=== PATIENT | female | born 1940 | race Caucasian/White ===

== ENCOUNTER 2020-08-07 11:40 | Emergency (ER) | payer MEDICARE ==
[~2020-08-07] VITALS: Ht 160 cm; Wt 91.6 kg
[~2020-08-07 11:40] MED LIST: CLC500CT; FEXO60CA19; GLUCOSAMINE CHONDROI; GMFB600T; MULT1TAB63; OMG1KC; PRILOSEC; RLX60T; SULF1TAB35 PO; [UNRECOGNIZED DRUG - REMARK]
--- NOTE | 2020-08-07 12:23 | ED Upper Extremity ---
General Chief Complaint: Upper Extremity Stated Complaint: LEFT ARM PAIN Nursing Triage Note: pt reports l arm pain and weakness x 1 week with no known injury Nursing Sepsis Screen: No Definite Risk Source: patient Exam Limitations: no limitations History of Present Illness Date Seen by Provider: Aug 07, 2020 Time Seen by Provider: 12:22 Initial Comments This is a well-appearing 79-year-old female who presents to the ER with complaints of left arm pain that has been present for a week and a half. States that she recently started doing her arm exercises utilizing a brock system and thinks that she overdid it. However she is preparing for a trip and is concerned she may be having a heart attack. Additionally reports a throbbing sensation in her right restoration that has been present since her symptom onset of her left arm. States throbbing sensation does not cause her pain nor does she have any changes in vision. Discussed this with her daughter and daughter states that she believes her mom may be a little anxious about the upcoming trip. She denies fever, chills, cough, chest pain, shortness of breath, nausea, vomiting, abdominal pain. Allergies and Home Medications Allergies Coded Allergies: NKANo Known Allergies (Verified Allergy, Unknown, 08/06/06) Home Medications Sulfamethoxazole/Trimethoprim 1 Each Tablet, 1 EACH PO BID Prescribed by: PIERO LEZAMA MD on 04/04/09 1204 Patient Home Medication List Home Medication List Reviewed: Yes Review of Systems Constitutional: no symptoms reported EENTM: no symptoms reported Respiratory: no symptoms reported Cardiovascular: no symptoms reported Gastrointestinal: no symptoms reported Genitourinary: no symptoms reported Musculoskeletal: see HPI Skin: no symptoms reported Psychiatric/Neurological: See HPI Past Uxsdlnq-Jxdnwx-Jebqcg Hx Patient Social History Alcohol Use: Denies Use Smoking Status: Never a Smoker Recent Infectious Disease Expo: No Recent Hopitalizations: Yes Past Medical History Surgeries: Yes (BREAST BIOPSY, EGD, COLONOSCOPY) Respiratory: No Cardiac: Yes High Cholesterol Neurological: Yes Genitourinary: No Gastrointestinal: Yes Gastroesophageal Reflux Musculoskeletal: No Endocrine: No Psychosocial: No Blood Disorders: No Physical Exam Vital Signs Vital Signs - First Documented 08/07/20 11:49 Temp 37.0 Pulse 96 Resp 18 B/P (MAP) 157/80 (105) Pulse Ox 96 Capillary Refill : Less Than 3 Seconds Height, Weight, BMI Height: '" Weight: lbs. oz. kg; 35.00 BMI Method: General Appearance: WD/WN HEENT: PERRL/EOMI, normal ENT inspection, pharynx normal, other (Bilateral temporal arteries 2+ and regular.) Neck: non-tender, full range of motion, supple, normal inspection Cardiovascular: normal peripheral pulses, regular rate, rhythm, no murmur Respiratory: chest non-tender, lungs clear, normal breath sounds, no respiratory distress Gastrointestinal: normal bowel sounds, non tender, soft Back: normal inspection, no vertebral tenderness Shoulder: normal inspection, non-tender, no evidence of injury; No asymmetry, No bone tenderness, No ecchymosis; pain (Left triceps.); No swelling Elbow/Forearm: normal inspection, non-tender, no evidence of injury Wrist: Yes normal inspection, Yes non-tender, Yes no evidence of injury Hand: normal inspection, non-tender, no evidence of injury, normal ROM Neurologic/Tendon: normal sensation, normal motor functions, normal tendon functions Neurologic/Psychiatric: no motor/sensory deficits, alert, normal mood/affect, oriented x 3 Skin: normal color, warm/dry Progress/Results/Core Measures Results/Orders Lab Results Laboratory Tests Test 08/07/20 13:15 Range/Units Erythrocyte Sedimentation Rate 38 H 0-30 MM/HR C-Reactive Protein High Sensitivity 1.75 H 0.00-0.50 MG/DL My Orders Orders - PAUL BANSAL APRN Hs C Reactive Protein (08/07/20 12:21) Erythrocyte Sedimentation Rate (08/07/20 12:21) Ibuprofen Tablet (Motrin Tablet) (08/07/20 12:45) Medications Given in ED Current Medications Medications Dose Ordered Sig/Kelvin Route Start Time Stop Time Status Last Admin Dose Admin Ibuprofen 400 mg ONCE ONCE PO 08/07/20 12:45 08/07/20 12:46 DC 08/07/20 12:58 400 MG Vital Signs/I&O 08/07/20 08/07/20 11:49 14:25 Temp 37.0 37.0 Pulse 96 90 Resp 18 18 B/P (MAP) 157/80 (105) 142/74 (105) Pulse Ox 96 98 Blood Pressure Mean: 105 Progress Progress Note : Progress Note Patient examined and in no acute distress. Symptoms correlate with her recent exercise with [employer] system. She is tender over her left tricep region. States she came in because when she looked up left arm pain on [employer] it told her she could possibly be having a heart attack. This is why she presented to the ER. However, she denies chest pain, shortness of breath, nausea, vomiting, d iaphoresis. While discussing her case, her daughter who is reported to be a physician was on phone call and was concerned with her throbbing sensation in her right temporal artery and GCA. Discussed that we can order a ESR and CRP to evaluate further for GCA. ESR minimally elevated at 0.38. CRP elevated at 1.75. Discussed that with minimal elevation in inflammatory markers and her lack of pain with pulsing sensation, lack of vision changes, and infrequency of symptoms this is unlikely GCA. Recommended she continue to monitor and discussed following up if her symptoms worsen. Family and patient are agreeable with this plan. Placed kalyan wrap around left tricep and given Motrin 400 mg p.o. States that she feels much improved. Departure Impression Primary Impression: Strain of left triceps muscle Disposition: HOME, SELF-CARE Condition: Improved Departure-Patient Inst. Referrals: JOSE MARTIN CAMEJO MD (PCP/Family) Primary Care Physician Patient Instructions: Muscle Strain ED Add. Discharge Instructions: Plan: 1. Rest, ice 20 minutes at a time 3-4x a day, use kalyan wrap for comfort and you can re-adjust as needed. 2. Tylenol or Ibuprofen as needed for pain per package. 3. Perform gentle elbow exercises so your arm does not stiffen up. 4. Follow up with your primary care provider if your symptoms are persisting. 5. Return for any new, concerning, or worsening symptoms. All discharge instructions reviewed with patient and/or family. Voiced understa nding. PAUL BANSAL GRAPHIC PRODUCTION ARTIST Aug 07, 2020 12:23
[2020-08-07] MEDS ORDERED: IBUPROFEN TABLET 200 MG TAB PO ONE (12:45)
[2020-08-07 14:25] VITALS: BP 142/74
== END 2020-08-07 14:25 | disposition home or self-care (01) ==
LOC: EDUNIT# 11:40 → ER 11:43
DX: S46.312A Strain of muscle, fascia and tendon of triceps, left arm, initial encounter (principal); R79.82 Elevated C-reactive protein (CRP); R70.0 Elevated erythrocyte sedimentation rate; X50.9XXA Other and unspecified overexertion or strenuous movements or postures, initial encounter
CPT/HCPCS: 36415; 85652; 86141; 99283

== ENCOUNTER 2020-09-20 10:22 | Emergency (ER) | payer MEDICARE ==
[~2020-09-20] VITALS: Ht 162 cm; Wt 91.6 kg
[2020-09-20] MEDS ORDERED: FLEET ENEMA ADULT 1 EA BTL PR ONE (11:30)
--- NOTE | 2020-09-20 11:32 | ED GI ---
General Chief Complaint: Abdominal/GI Problems Stated Complaint: CONSTIPATION Source of Information: Patient Exam Limitations: No Limitations History of Present Illness Date Seen by Provider: Sep 20, 2020 Time Seen by Provider: 11:30 Initial Comments To ER with constipation. No bowel movement for 5 days. She tried Dulcolax x2 2 days ago and vomited shortly after taking it. She tried magnesium citrate yesterday and vomited after taking it. No fevers or chills. She has had some right flank pain for about a week as well she believes she twisted wrong. No dysuria no fever no chills. Her last colonoscopy [place] [address] Thorpe here. Timing/Duration: 1-2 Days Severity/Quality: Moderate Location: Generalized Abdomen Radiation: No Radiation Activities at Onset: None Associated Symptoms: Nausea/Vomiting Allergies and Home Medications Allergies Coded Allergies: NKANo Known Allergies (Verified Allergy, Unknown, 08/06/06) Home Medications Sulfamethoxazole/Trimethoprim 1 Each Tablet, 1 EACH PO BID Prescribed by: PIERO LEZAMA MD on 04/04/09 1204 Patient Home Medication List Home Medication List Reviewed: Yes Review of Systems Review of Systems Constitutional: see HPI EENTM: No Symptoms Reported Respiratory: No Symptoms Reported Cardiovascular: No Symptoms Reported Gastrointestinal: See HPI; Denies Abdominal Pain; Constipated, Nausea, Vomiting Genitourinary: No Symptoms Reported Musculoskeletal: no symptoms reported Skin: no symptoms reported Psychiatric/Neurological: No Symptoms Reported Endocrine: No Symptoms Reported Hematologic/Lymphatic: No Symptoms Reported Past Rxrifvg-Nossqo-Wfiknq Hx Patient Social History Tobacco Use?: No Smoking Status: Former Smoker Substance use?: No Alcohol Use?: No Immunizations Up To Date First/Initial COVID19 Vaccinat: 03/31/20 Second COVID19 Vaccination Chidi: 04/28/20 COVID19 Vaccine Milieu Coordinator: MODERNA Past Medical History Surgeries: Yes (BREAST BIOPSY, EGD, COLONOSCOPY) Respiratory: No Cardiac: Yes High Cholesterol Neurological: Yes Genitourinary: No Gastrointestinal: Yes Gastroesophageal Reflux Musculoskeletal: No Endocrine: No Psychosocial: No Blood Disorders: No Physical Exam Vital Signs Vital Signs - First Documented 09/20/20 10:57 Temp 36.4 Pulse 102 Resp 22 B/P (MAP) 139/90 (106) Pulse Ox 95 O2 Delivery Room Air Capillary Refill : Height/Weight/BMI Height: '" Weight: lbs. oz. kg; 35.00 BMI Method: General Appearance: WD/WN, no apparent distress HEENT: PERRL/EOMI, normal ENT inspection Respiratory: no respiratory distress, no accessory muscle use Cardiovascular: regular rate, rhythm, no murmur Gastrointestinal: normal bowel sounds, non tender, soft Extremities: normal range of motion, non-tender Back: CVA tenderness (R); No CVA tenderness (L) Neurologic/Psychiatric: alert, normal mood/affect, oriented x 3 Skin: normal color, warm/dry Progress/Results/Core Measures Results/Orders Lab Results Laboratory Tests Test 09/20/20 11:26 Range/Units White Blood Count 10.9 4.3-11.0 10^3/uL Red Blood Count 4.38 3.80-5.11 10^6/uL Hemoglobin 13.6 11.5-16.0 g/dL Hematocrit 41 35-52 % Mean Corpuscular Volume 94 80-99 fL Mean Corpuscular Hemoglobin 31 25-34 pg Mean Corpuscular Hemoglobin Concent 33 32-36 g/dL Red Cell Distribution Width 13.2 10.0-14.5 % Platelet Count 380 130-400 10^3/uL Mean Platelet Volume 11.9 9.0-12.2 fL Immature Granulocyte % (Auto) 0 % Neutrophils (%) (Auto) 75 42-75 % Lymphocytes (%) (Auto) 14 12-44 % Monocytes (%) (Auto) 8 0-12 % Eosinophils (%) (Auto) 2 0-10 % Basophils (%) (Auto) 1 0-10 % Neutrophils # (Auto) 8.2 H 1.8-7.8 10^3/uL Lymphocytes # (Auto) 1.6 1.0-4.0 10^3/uL Monocytes # (Auto) 0.8 0.0-1.0 10^3/uL Eosinophils # (Auto) 0.2 0.0-0.3 10^3/uL Basophils # (Auto) 0.1 0.0-0.1 10^3/uL Immature Granulocyte # (Auto) 0.0 0.0-0.1 10^3/uL Urine Color YELLOW Urine Clarity CLEAR Urine pH 6.0 5-9 Urine Specific [place] <=1.005 1.016-1.022 Urine Protein NEGATIVE NEGATIVE Urine Glucose (UA) NEGATIVE NEGATIVE Urine Ketones NEGATIVE NEGATIVE Urine Nitrite NEGATIVE NEGATIVE Urine Bilirubin NEGATIVE NEGATIVE Urine Urobilinogen 0.2 < = 1.0 MG/DL Urine Leukocyte Esterase TRACE H NEGATIVE Urine RBC (Auto) NEGATIVE NEGATIVE Urine RBC NONE /HPF Urine WBC 0-2 /HPF Urine Squamous Epithelial Cells 2-5 /HPF Urine Crystals NONE /LPF Urine Bacteria TRACE /HPF Urine Casts NONE /LPF Urine Mucus NEGATIVE /LPF Urine Culture Indicated NO Sodium Level 140 135-145 MMOL/L Potassium Level 4.3 3.6-5.0 MMOL/L Chloride Level 102 98-107 MMOL/L Carbon Dioxide Level 23 21-32 MMOL/L Anion Gap 15 H 5-14 MMOL/L Blood Urea Nitrogen 22 H 7-18 MG/DL Creatinine 0.99 0.60-1.30 MG/DL Estimat Glomerular Filtration Rate 54 BUN/Creatinine Ratio 22 Glucose Level 101 70-105 MG/DL Calcium Level 9.9 8.5-10.1 MG/DL Corrected Calcium 9.7 8.5-10.1 MG/DL Magnesium Level 2.2 1.6-2.4 MG/DL Total Bilirubin 0.5 0.1-1.0 MG/DL Aspartate Amino Transf (AST/SGOT) 22 5-34 U/L Alanine Aminotransferase (ALT/SGPT) 14 0-55 U/L Alkaline Phosphatase 100 40-136 U/L Total Protein 8.1 6.4-8.2 GM/DL Albumin 4.2 3.2-4.5 GM/DL My Orders Orders - SULMA ROY MATRIX DRIER TENDER Ua Culture If Indicated (09/20/20 11:29) Cbc With Automated Diff (09/20/20 11:29) Comprehensive Metabolic Panel (09/20/20 11:29) Magnesium (09/20/20 11:29) Ed Iv/Invasive Line Start (09/20/20 11:29) Na Phos/Na Biphos Enema (Fleet Enema [place] (09/20/20 11:30) Ct Abdomen/Pelvis Wo (09/20/20 11:32) Us Gallbladder [id number] (09/20/20 12:19) Ondansetron Oral Dissolve Tab (Zofran (09/20/20 13:45) Vital Signs/I&O 09/20/20 10:57 Temp 36.4 Pulse 102 Resp 22 B/P (MAP) 139/90 (106) Pulse Ox 95 O2 Delivery Room Air Departure Communication (Admissions) 0596-patient had a small bowel movement hard pebble-like in the commode after administration of a fleets enema. A little bit of blood on this not unexpected. We will discharge her home. She would also like something for the pain in her low back. NAME: CRYSTAL DOWELL [facility] REC#: [id number] PT STATUS: REG ER : 1940 PHYSICIAN: SULMA ROY [employer] DRIER TENDER ADMIT DATE: 09/20/20/ER Draft Date of Exam:09/20/20 CT ABDOMEN/PELVIS WO INDICATION: Right flank pain. TECHNIQUE/COMPARISON: Noncontrast CT imaging of the abdomen and pelvis was performed. There is no previous study available for comparison. FINDINGS: Note is made of multiple low-density regions within the liver. These could represent hepatic cysts. The largest is in the anterolateral right hepatic lobe and measures approximately 3 cm in diameter. The gallbladder is distended with multiple stones seen in the dependent portion. There is no significant biliary ductal dilatation. No pancreatic, adrenal gland, or splenic lesion is identified. There is a small hiatal hernia. The unenhanced images of the kidneys reveal no lesion. There is no hydronephrosis. No urinary tract calculus is identified. The unopacified decompressed urinary bladder has a normal appearance. There is a moderate amount of stool throughout the colon, most pronounced in the right colon. There is no evidence of appendiceal inflammation. No organized fluid collection is identified. There is moderate lower lumbar spondylosis. IMPRESSION: There is cholelithiasis and distention of the gallbladder which could be further evaluated with ultrasonography at which time low-density lesions in the liver could also be assessed for cystic versus solid nature. Note is also made of a mild hiatal hernia and a moderate amount of stool, most pronounced in the right colon, likely indicating constipation. Dictated on workstation # [id number] Dict: 09/20/20 1159 Trans: 09/20/20 1206 [id number] Interpreted by: OVI GAMEZ MD Electronically signed by: Jaci Primary Impression: Constipation Qualified Codes: K59.00 - Constipation, unspecified Disposition: HOME, SELF-CARE Condition: Stable Departure-Patient Inst. Decision time for Depature: 13:41 Referrals: JOSE MARTIN CAMEJO MD (PCP/Family) Primary Care Physician Patient Instructions: Constipation, Adult (DC) Add. Discharge Instructions: Increase your water intake. 2. Use your nausea medication as needed.. Take the nausea medication prior to drinking the laxative. All discharge instructions reviewed with patient and/or family. Voiced unders tanding. Scripts Ondansetron (Ondansetron Odt) 8 Mg Tab.rapdis 8 MG PO Q6H PRN for NAUSEA/VOMITING, #20 TAB Prov: SULMA ROY APRN 09/20/20 Polyethylene Glycol 3350 (Miralax) 17 Gm Powd.pack 17 GM PO QID for 4 Days, #30 EACH Prov: SULMA ROY APRN 09/20/20 SULMA ROY APRN Sep 20, 2020 11:32
[2020-09-20 11:34] LABS: BASOPHILS # (AUTO) 0.1 10^3/uL (0.0-0.1); BASOPHILS % (AUTO) 1 % (0-10); EOSINOPHILS # (AUTO) 0.2 10^3/uL (0.0-0.3); EOSINOPHILS % (AUTO) 2 % (0-10); HEMATOCRIT 41 % (35-52); HEMOGLOBIN 13.6 g/dL (11.5-16.0); LYMPHOCYTES # (AUTO) 1.6 10^3/uL (1.0-4.0); LYMPHOCYTES % (AUTO) 14 % (12-44); MEAN CORPUSCULAR HEMOGLOBIN 31 pg (25-34); MEAN CORPUSCULAR HGB CONC 33 g/dL (32-36); MEAN CORPUSCULAR VOLUME 94 fL (80-99); MEAN PLATELET VOLUME 11.9 fL (9.0-12.2); MONOCYTES # (AUTO) 0.8 10^3/uL (0.0-1.0); MONOCYTES % (AUTO) 8 % (0-12); NEUTROPHILS # (AUTO) 8.2 10^3/uL (1.8-7.8); NEUTROPHILS % (AUTO) 75 % (42-75); PLATELET COUNT 380 10^3/uL (130-400); WHITE BLOOD COUNT 10.9 10^3/uL (4.3-11.0)
[2020-09-20 11:35] LABS: BILIRUBIN,URINE NEGATIVE (NEGATIVE); CLARITY,URINE CLEAR; COLOR,URINE YELLOW; GLUCOSE, URINE (UA) NEGATIVE (NEGATIVE); KETONES,URINE NEGATIVE (NEGATIVE); LEUKOCYTE ESTERASE ,URINE TRACE (NEGATIVE); NITRITE,URINE NEGATIVE (NEGATIVE); PROTEIN,URINE NEGATIVE (NEGATIVE)
[2020-09-20 11:46] LABS: ALBUMIN 4.2 GM/DL (3.2-4.5); POTASSIUM 4.3 MMOL/L (3.6-5.0)
[2020-09-20 11:47] LABS: CALCIUM 9.9 MG/DL (8.5-10.1)
[2020-09-20 11:48] LABS: BACTERIA,URINE TRACE /HPF; TOTAL PROTEIN 8.1 GM/DL (6.4-8.2); WBC,URINE 0-2 /HPF
[2020-09-20 11:50] LABS: BILIRUBIN,TOTAL 0.5 MG/DL (0.1-1.0)
[2020-09-20 11:52] LABS: CREATININE SERUM 0.99 MG/DL (0.60-1.30)
[2020-09-20 11:55] LABS: MAGNESIUM 2.2 MG/DL (1.6-2.4)
--- NOTE | 2020-09-20 12:06 | Diagnostic Imaging Report ---
INDICATION: Right flank pain. TECHNIQUE/COMPARISON: Noncontrast CT imaging of the abdomen and pelvis was performed. There is no previous study available for comparison. FINDINGS: Note is made of multiple low-density regions within the liver. These could represent hepatic cysts. The largest is in the anterolateral right hepatic lobe and measures approximately 3 cm in diameter. The gallbladder is distended with multiple stones seen in the dependent portion. There is no significant biliary ductal dilatation. No pancreatic, adrenal gland, or splenic lesion is identified. There is a small hiatal hernia. The unenhanced images of the kidneys reveal no lesion. There is no hydronephrosis. No urinary tract calculus is identified. The unopacified decompressed urinary bladder has a normal appearance. There is a moderate amount of stool throughout the colon, most pronounced in the right colon. There is no evidence of appendiceal inflammation. No organized fluid collection is identified. There is moderate lower lumbar spondylosis. IMPRESSION: There is cholelithiasis and distention of the gallbladder which could be further evaluated with ultrasonography at which time low-density lesions in the liver could also be assessed for cystic versus solid nature. Note is also made of a mild hiatal hernia and a moderate amount of stool, most pronounced in the right colon, likely indicating constipation. Dictated by: Dictated on workstation # [id number]
[2020-09-20] MEDS ORDERED: ONDANSETRON 4 MG (ZOFRAN) ORAL DISSOLVE TAB PO ONE (13:45)
[2020-09-20] MEDS ORDERED: ONDA8TAB13 PO (14:09)
[2020-09-20] MEDS ORDERED: POLY17PO6 PO (14:09)
[2020-09-20] MEDS ORDERED: KETOROLAC 30 MG/ML VIAL IM ONE (14:15)
[2020-09-20 15:03] VITALS: BP 139/90
--- NOTE | 2020-09-20 17:00 | Diagnostic Imaging Report ---
PROCEDURE: US Gallbladder. TECHNIQUE: Multiple real-time grayscale images were obtained over the right upper quadrant in various projections. INDICATION: Right upper quadrant pain, cholelithiasis, gallbladder distention. COMPARISON: Exam is correlated with CT abdomen and pelvis performed earlier this same date. FINDINGS: The gallbladder is distended and stone containing, its wall at 2 mm was not pathologically thickened. No pericholecystic edema. There is no documentation as to the presence or absence of Whitney's sign. There is no abnormal distention of the intrahepatic bile ducts. The common bile duct could not be visualized but was nondilated on earlier CT. Pancreas and aorta are largely obscured but grossly unremarkable at earlier CT. The unobstructed right kidney appeared unremarkable and nonacute. There is cyst in the liver showing no complexity. IMPRESSION: 1. Stone-containing distended gallbladder without wall thickening or appreciable pericholecystic edema. No identifiable intrahepatic biliary ductal dilatation and a nondilated extrahepatic duct was seen at earlier CT. 2. Hepatic cyst with an unobstructed right kidney. No ascites or fluid collection. Dictated by: Dictated on workstation # [id number]
== END 2020-09-20 15:03 | disposition home or self-care (01) ==
LOC: EDUNIT# 10:22 → ER 10:24
DX: K59.00 Constipation, unspecified (principal); Z87.891 Personal history of nicotine dependence
CPT/HCPCS: 36415; 74176; 76705; 80053; 81000; 83735; 85025; 96372

== ENCOUNTER 2020-09-25 17:34 | Emergency (ER) | payer MEDICARE ==
[~2020-09-25] VITALS: Ht 162 cm; Wt 90.0 kg
[~2020-09-25 17:34] MED LIST changes: +ONDA8TAB13 PO; +POLY17PO6 PO
[2020-09-25] MEDS ORDERED: ORPHENADRINE 60 MG/2 ML (NORFLEX) AMP (ED ONLY) IM ONE (18:00)
[2020-09-25] MEDS ORDERED: KETOROLAC 30 MG/ML VIAL IM ONE (18:00)
--- NOTE | 2020-09-25 18:05 | ED Back Pain ---
General Chief Complaint: Back Problems Stated Complaint: BACK PAIN Nursing Triage Note: PT TO ED PER EMS FOR C/O LOWER BACK PAIN ONSET X5 DAYS. PT REPORTS WAS SEEN IN THIS ED X2 DAYS AGO FOR CONSTIPATION ET BACK PAIN. PT REPORTS CONSTIPATION IS IMPROVED BUT BACK PAIN IS NOT. NO OTHER C/O VOICED. History of Present Illness Date Seen by Provider: Sep 25, 2020 Initial Comments This is an 80-year-old female who presents to the ER via [facility] with complaints of right-sided low back pain. This pain has been present for the past week and she has also had associated constipation during this time. States that her constipation has since resolved however the back pain is still present. States that ice helps briefly but then her pain returns. Pain is present when ambulating, better with rest. Allergies and Home Medications Allergies Coded Allergies: NKANo Known Allergies (Verified Allergy, Unknown, 08/06/06) Home Medications Ondansetron 8 Mg Tab.rapdis, 8 MG PO Q6H PRN for NAUSEA/VOMITING Prescribed by: SULMA ROY on 09/20/20 1409 Polyethylene Glycol 3350 17 Gm Powd.pack, 17 GM PO QID Prescribed by: SULMA ROY on 09/20/20 1409 Sulfamethoxazole/Trimethoprim 1 Each Tablet, 1 EACH PO BID Prescribed by: PIERO LEZAMA MD on 04/04/09 1204 Past Tnaehzi-Aeocnv-Ahuejy Hx Patient Social History Tobacco Use?: No Smoking Status: Former Smoker Use of E-Cig and/or Vaping dev: No Substance use?: No Alcohol Use?: No Pt feels they are or have been: No Past Medical History Surgery/Hospitalization HX: T&A Surgeries: Yes (BREAST BIOPSY, EGD, COLONOSCOPY) Respiratory: No Cardiac: Yes High Cholesterol Neurological: Yes Genitourinary: No Gastrointestinal: Yes Gastroesophageal Reflux Musculoskeletal: No Endocrine: No Psychosocial: No Blood Disorders: No Physical Exam Vital Signs Vital Signs - First Documented 09/25/20 17:40 Temp 36.0 Pulse 91 Resp 20 B/P (MAP) 180/96 (124) Pulse Ox 100 O2 Delivery Room Air Capillary Refill : Less Than 3 Seconds Height, Weight, BMI Height: '" Weight: lbs. oz. kg; 34.00 BMI Method: Progress/Results/Core Measures Results/Orders My Orders Orders - PAUL BANSAL APRN Ketorolac Injection (Toradol Injection) (09/25/20 18:00) Orphenadrine Inj (Ed Only) (Norflex Inje (09/25/20 18:00) Rx-Cyclobenzaprine Tablet (Rx-Flexeril T (09/25/20 19:10) Medications Given in ED Current Medications Medications Dose Ordered Sig/Kelvin Route Start Time Stop Time Status Last Admin Dose Admin Ketorolac Tromethamine 30 mg ONCE ONCE IM 09/25/20 18:00 09/25/20 18:01 DC 09/25/20 18:46 30 MG Orphenadrine Citrate 60 mg ONCE ONCE IM 09/25/20 18:00 09/25/20 18:01 DC 09/25/20 18:45 60 MG Vital Signs/I&O 09/25/20 17:40 Temp 36.0 Pulse 91 Resp 20 B/P (MAP) 180/96 (124) Pulse Ox 100 O2 Delivery Room Air Blood Pressure Mean: 124 Departure Impression Primary Impression: SI (sacroiliac) joint inflammation Disposition: HOME, SELF-CARE Condition: Improved Departure-Patient Inst. Decision time for Depature: 19:11 Referrals: JOSE MARTIN CAMEJO MD (PCP/Family) Primary Care Physician Patient Instructions: Sacroiliac Joint Pain Add. Discharge Instructions: Plan: 1. May use ice/heat 20 minutes at a time as needed for pain. 2. May take Tylenol or Ibuprofen as needed for pain per package. 3. Take Flexeril 10mg by mouth every 8 hours as needed for pain. 4. Follow up with your doctor for persistent pain. 5. Return for any new, concerning, or worsening symptoms. All discharge instructions reviewed with patient and/or family. Voiced understanding. Scripts Cyclobenzaprine HCl (Cyclobenzaprine HCl) 10 Mg Tablet 10 MG PO Q8H PRN for SPASMS, #15 TAB 0 Refills Prov: PALU BANSAL GLOBAL CMO 09/25/20 PAUL BANSAL GLOBAL CMO Sep 25, 2020 18:05
[2020-09-25] MEDS ORDERED: RX-CYCLOBENZAPRINE 10 MG (FLEXERIL) TAB PPK#3 PO STA (19:10)
[2020-09-25] MEDS ORDERED: CYCL10TA9 PO (19:12)
[2020-09-25 19:20] VITALS: BP 180/96
== END 2020-09-25 19:20 | disposition home or self-care (01) ==
LOC: EDUNIT# 17:34 → ER 17:36
DX: M46.1 Sacroiliitis, not elsewhere classified (principal); Z87.891 Personal history of nicotine dependence

== ENCOUNTER 2020-11-03 11:47 | Outpatient (RCR) | payer MEDICARE | END 2020-11-18 09:19 | disposition home or self-care (01) | PROVIDERS: ATTEND Family Medicine | DX: M25.552 Pain in left hip (principal); M25.551 Pain in right hip; M54.5 Low back pain ==

== ENCOUNTER → 2020-11-03 | Outpatient (CLI) | payer MEDICARE ==
[~2020-11-03] MED LIST changes: +CYCL10TA9 PO
--- NOTE | 2020-11-03 15:28 | Diagnostic Imaging Report ---
INDICATION: Low back pain. EXAMINATION: Lumbar spine. FINDINGS: AP and lateral views of the lumbar spine show normal vertebral body alignment. There is a compression fracture of L1 with anterior wedging. There is vacuum disc phenomena with disc space narrowing at L4-L5 and L5-S1. IMPRESSION: L1 compression fracture. This has progressed since 09/20/2020. 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 Dictated by: Dictated on workstation # [id number]
--- NOTE | 2020-11-03 15:31 | Diagnostic Imaging Report ---
INDICATION: Low back pain. EXAMINATION: Sacroiliac joints. FINDINGS: AP and oblique views of the SI joints do not show any fracture of the sacral ala. SI joints appear to be intact. There are no sclerotic changes of the opposing articular surfaces. There are advanced degenerative disc changes at L5-S1. IMPRESSION: Unremarkable sacroiliac joints. Dictated by: Dictated on workstation # [id number]
== END ==
LOC: RAD 14:43
PROVIDERS: ATTEND Family Medicine
DX: M48.56XA Collapsed vertebra, not elsewhere classified, lumbar region, initial encounter for fracture (principal); M51.36 Other intervertebral disc degeneration, lumbar region; M51.37 Other intervertebral disc degeneration, lumbosacral region
CPT/HCPCS: 72100; 72202

== ENCOUNTER → 2020-11-04 | Outpatient (CLI) | payer MEDICARE ==
--- NOTE | 2020-11-04 14:20 | Diagnostic Imaging Report ---
INDICATION: Pelvic and right hip pain AP view of the pelvis is obtained with coned AP and frog-leg views of right hip. FINDINGS: There is lower lumbar spondylosis. No acute fracture or dislocation is identified. No abnormal lytic or sclerotic focus is seen, and there is no radiopaque foreign body. IMPRESSION: No acute abnormality. Dictated by: Dictated on workstation # [id number]
== END ==
LOC: RAD 13:41
PROVIDERS: ATTEND Family Medicine
DX: M48.56XA Collapsed vertebra, not elsewhere classified, lumbar region, initial encounter for fracture (principal)

== ENCOUNTER → 2020-12-21 | Outpatient (CLI) | payer MEDICARE ==
--- NOTE | 2020-12-21 15:26 | Diagnostic Imaging Report ---
INDICATION: Postmenopausal state COMPARISON: 03/03/2011 FINDINGS: AP Spine L1-L4: [BMD (g/cm2): 1.016] [T-Score: -1.5] [Z-Score: -0.3] [BMD Previous: 1.132] [BMD % Change: -10.2] LT Hip Neck: [BMD (g/cm2): 0.753] [T-Score: -2.1] [Z-Score: -0.3] LT Hip Total: [BMD (g/cm2):0.850] [T-Score:-1.3] [Z-Score: 0.4] [BMD Previous: 0.894] [BMD % Change: -4.9] RT Hip Neck: [BMD (g/cm2):0.761] [T-Score:-2.0] [Z-Score:-0.2] RT Hip Total: [BMD (g/cm2):0.809] [T-score:-1.6] [Z-Score:0.0] [BMD Previous:0.899] [BMD % Change:-10.0] *Indicates significant change from prior examination based on 95% confidence level. World Health Organization criteria for BMD interpretation classify patients as Normal (T-score at or above -1.0), Osteopenic (T-score between -1.0 and -2.5) or Osteoporotic (T-score at or below -2.5). LIMITATIONS AND MODIFICATION: None. FRACTURE RISK (FRAX SCORE): The ten year probability of (%): Major Osteoporotic Fracture: [22.3] Hip Fracture: [6.0] IMPRESSION: 1. Osteopenia (Low bone mass). 2. No significant change in bone mineral density since prior examination. 3. See below National Osteoporosis Foundation guidelines on when to potentially initiate pharmacologic therapy. Based on the National Osteoporosis Foundation Guidelines, pharmacologic treatment should be initiated in any of the following, unless clinical conditions suggest otherwise: * Any patient with prior fragility fracture of the hip or vertebrae. A spine fracture indicates 5X risk for subsequent spine fracture and 2X risk for subsequent hip fracture. * Osteoporosis (T-score <-2.5). * Postmenopausal women and men age 50 and older with low bone mass/osteopenia (T-score between -1.0 and -2.5) by DXA and 10-year major osteoporotic fracture greater than 20% or a 10-year probability of hip fracture greater than 3%. These fracture risks are supplied above in the FRAX score, if applicable. * Clinician judgement and/or patient preferences may indicate treatment for people with 10-year fracture probabilities above or below these levels. Dictated by: Dictated on workstation # [id number]
== END ==
LOC: RAD 14:30
PROVIDERS: ATTEND Physician Assistant
DX: M85.80 Other specified disorders of bone density and structure, unspecified site (principal); Z78.0 Asymptomatic menopausal state
CPT/HCPCS: 77080

== ENCOUNTER 2021-02-13 20:31 | Inpatient (IN) | payer MEDICARE ==
[~2021-02-13] VITALS: Ht 157.1 cm; Wt 82.0 kg
[~2021-02-13 20:31] MED LIST changes: +CYCL10TA25 PO; -CYCL10TA9 PO
[2021-02-13] MEDS ORDERED: LACTATED RINGERS 1,000 ML IV ONE (20:45)
[2021-02-13 20:50] LABS: BASOPHILS # (AUTO) 0.1 10^3/uL (0.0-0.1); BASOPHILS % (AUTO) 1 % (0-10); EOSINOPHILS # (AUTO) 0.2 10^3/uL (0.0-0.3); EOSINOPHILS % (AUTO) 2 % (0-10); HEMATOCRIT 44 % (35-52); LYMPHOCYTES # (AUTO) 1.5 10^3/uL (1.0-4.0); LYMPHOCYTES % (AUTO) 14 % (12-44); MEAN CORPUSCULAR HEMOGLOBIN 30 pg (25-34); MEAN CORPUSCULAR HGB CONC 34 g/dL (32-36); MEAN CORPUSCULAR VOLUME 90 fL (80-99); MONOCYTES # (AUTO) 0.7 10^3/uL (0.0-1.0); MONOCYTES % (AUTO) 7 % (0-12); NEUTROPHILS # (AUTO) 8.1 10^3/uL (1.8-7.8); NEUTROPHILS % (AUTO) 77 % (42-75); PLATELET COUNT 297 10^3/uL (130-400); WHITE BLOOD COUNT 10.5 10^3/uL (4.3-11.0)
[2021-02-13 21:02] LABS: PROTHROMBIN TIME PATIENT 13.1 SEC (12.2-14.7)
[2021-02-13 21:03] LABS: ALBUMIN 4.1 GM/DL (3.2-4.5); CHLORIDE 90 MMOL/L (98-107); SODIUM 135 MMOL/L (135-145)
[2021-02-13 21:04] LABS: CALCIUM 9.7 MG/DL (8.5-10.1)
[2021-02-13 21:06] LABS: AMMONIA 37 UMOL/L (11-32); GLUCOSE 148 MG/DL (70-105); TOTAL PROTEIN 7.8 GM/DL (6.4-8.2)
[2021-02-13 21:07] LABS: BILIRUBIN,TOTAL 0.5 MG/DL (0.1-1.0); CARBON DIOXIDE 30 MMOL/L (21-32)
[2021-02-13 21:08] LABS: ERYTHROCYTE SEDIMENTATION RATE 31 MM/HR (0-30)
[2021-02-13 21:09] LABS: ALKALINE PHOSPHATASE 108 U/L (40-136); CREATININE SERUM 0.74 MG/DL (0.60-1.30); GFR ESTIMATED 76
--- NOTE | 2021-02-13 21:09 | Diagnostic Imaging Report ---
INDICATION: Altered mental status and weakness. FINDINGS: The heart size is normal. There is some bibasilar subsegmental atelectasis and/or pneumonitis. There is no pleural effusion or pneumothorax. Mediastinum is unremarkable. IMPRESSION: Bibasilar subsegmental atelectasis and/or pneumonitis. Dictated by: Dictated on workstation # [id number]
--- NOTE | 2021-02-13 21:09 | Diagnostic Imaging Report ---
PROCEDURE: CT head wo r/o stroke. TECHNIQUE: Multiple contiguous axial images were obtained through the brain without the use of intravenous contrast. Auto Exposure Controls were utilized during the CT exam to meet ALARA standards for radiation dose reduction. INDICATION: Neurologic deficit. Comparison made with prior examination of 02/01/2010. FINDINGS: There is prominence of the ventricles and sulci. There is no hydrocephalus or cerebral edema. There is no midline shift or mass-effect. There is no intracranial mass, hemorrhage, or extra-axial fluid collection. There is some diffuse decreased attenuation of the periventricular white matter which is nonspecific. The visualized paranasal sinuses and mastoid air cells are clear. There are no regional areas of decreased attenuation appreciated to suggest an acute CVA. IMPRESSION: 1. No acute intracranial process. 2. Age-appropriate atrophy. 3. Decreased attenuation of the periventricular white matter which is nonspecific, however, likely reflects senescent change and/or chronic small vessel ischemic disease. Dictated by: Dictated on workstation # [id number]
[2021-02-13 21:11] LABS: BUN/CREATININE RATIO 31
[2021-02-13 21:12] LABS: ALANINE AMINOTRANSFERASE 22 U/L (0-55)
[2021-02-13 21:13] LABS: MAGNESIUM 2.1 MG/DL (1.6-2.4)
[2021-02-13 21:14] LABS: CREATINE KINASE 33 U/L (29-168)
[2021-02-13 21:16] LABS: CLARITY,URINE CLEAR; COLOR,URINE YELLOW; GLUCOSE, URINE (UA) NEGATIVE (NEGATIVE); KETONES,URINE TRACE (NEGATIVE); LEUKOCYTE ESTERASE ,URINE NEGATIVE (NEGATIVE); NITRITE,URINE NEGATIVE (NEGATIVE); PROTEIN,URINE NEGATIVE (NEGATIVE)
--- NOTE | 2021-02-13 21:19 | ED General ---
General Chief Complaint: Altered Mental Status Stated Complaint: CONFUSION,SLURRED SPEECH Nursing Triage Note: Patient presented to the ER tonight via EMS secondary to confusion and slurred speech. Patients son states symptoms began approximately 2-3 days ago. Source of Information: Patient, EMS History of Present Illness Date Seen by Provider: Feb 13, 2021 Time Seen by Provider: 20:33 Initial Comments PT ARRIVES VIA EMS FROM HOME--SON IS [employer]IDE [employer] AND CALLED EMS PT HAS HAD GENERALIZED WEAKNESS, AND SOME CONFUSION AND OCCASIONAL SLURRED SPEECH OFF AND ON FOR THE LAST 2-3 DAYS PT HAD L1 COMPRESSION FRACTURE THIS SUMMER, AND HAS BEEN FOLLOWED AT [address] IN [facility], AND WAS RELEASED BY THE ORTHOPEDIC SURGEON LAST WEEK SON HAS REPORTED THAT PT HAS "GONE [place]" SINCE SUMMER, AFTER THE COMPRESSION FRACTURE OCCURRED--HAS LOST WEIGHT, HAVING GENERALIZED WEAKNESS. HAS HAD MEETINGS WITH "[employer]" [facility], AND ARE TRYING TO GET HOME PHYSICAL THERAPY SET UP. PT DENIES HEADACHE DENIES VISION CHANGES DENIES CHEST PAIN DENIES COUGH OR SHORTNESS OF BREATH DENIES NAUSEA, VOMITING, DIARRHEA OR ABDOMINAL PAIN --STATES SHE HAD CHICKEN NOODLE SOUP THIS EVENING DENIES ANY URINARY SYMPTOMS DENIES PARESTHESIAS OR MOTOR DEFICITS PT'S ONLY COMPLAINT IS CHRONIC NECK PAIN --IS BEING FOLLOWED BY [address] FOR THIS PROBLEM PT HAS HAD COVID-19 VACCINE NO FEVER OR RECENT ILLNESS. EMS REPORT THAT SPEECH WAS ESSENTIALLY CLEAR FOR THEM, WITH THE EXCEPTION OF A COUPLE OF WORDS WERE SLIGHTLY SLURRED PT'S DAUGHTER IS A PHYSICIAN 2144--SON NOW REPORTS THAT PT'S CYMBALTA DOSE WAS DOUBLED ON 02/08/21.( TAKES FOR DEPRESSION) HE STATES SHE NORMALLY WRITES EVERYTHING DOWN IN A JOURNAL, OF WHEN SHE TAKES WHICH PILLS, BUT PT HAS NOT WRITTEN ANYTHING DOWN ALL WEEK. HE STATES SHE HAS BEEN "GOING [place]" FOR THE LAST WEEK, WITH INCREASING FORGETFULNESS ( MORE THAN NORMAL) AND GENERALIZED WEAKNESS--THINKS IT WAS STARTING BEFORE MEDICATION CHANGE, BUT HAS GOTTEN WORSE SINCE THE . PCP: DR. CAMEJO Allergies and Home Medications Allergies Coded Allergies: Power Known Allergies (Verified Allergy, Unknown, 08/06/06) Patient Home Medication List Home Medication List Reviewed: Yes Calcium Carbonate (Tums) 500 Mg Tab.chew, (Reported) Entered as Reported by: LENI ARIAS on 08/06/062051 Cyclobenzaprine HCl (Cyclobenzaprine HCl) 10 Mg Tablet, 10 MG PO Q8H PRN for SPASMS Prescribed by: PAUL BANSAL on 09/25/201911 Fexofenadine Hcl (Olena) 60 Mg Capsule, (Reported) Entered as Reported by: LENI ARIAS on 08/06/062043 Gemfibrozil (Lopid) 600 Mg Tablet, (Reported) Entered as Reported by: LENI ARIAS on 08/06/062043 Multivitamins (Vitamins (Multi-Vit)) 1 Ea Tablet, (Reported) Entered as Reported by: LENI ARIAS on 08/06/062048 [place] 3 Polyunsat Fatty Acids (Fish Oil) 1,000 Mg Cap, (Reported) Entered as Reported by: LENI ARIAS on 08/06/062049 Ondansetron (Ondansetron Odt) 8 Mg Tab.rapdis, 8 MG PO Q6H PRN for NAUSEA/VOM ITING Prescribed by: SULMA ROY on 09/20/20 140 Polyethylene Glycol 3350 (Miralax) 17 Gm Powd.pack, 17 GM PO QID Prescribed by: SULMA ROY on 09/20/20 140 Raloxifene Hcl (Evista) 60 Mg Tablet, (Reported) Entered as Reported by: LENI ARIAS on 08/06/062044 Sulfamethoxazole/Trimethoprim (Bactrim DS) 1 Each Tablet, 1 EACH PO BID Prescribed by: PIERO LEZAMA MD on 04/04/09 1204 [Allergy Sinus] TAB, (Reported) Entered as Reported by: LENI ARIAS on 08/06/062049 [Glucosamine Chondroi] TAB, (Reported) Entered as Reported by: LENI ARIAS on 08/06/062048 [Prilosec ] 20 MG TAB, (Reported) Entered as Reported by: LENI ARIAS on 08/06/062045 Review of Systems Review of Systems Constitutional: see HPI; No fever; malaise, weakness EENTM: no symptoms reported Respiratory: no symptoms reported; No cough, No short of breath Cardiovascular: no symptoms reported; No chest pain, No edema, No syncope Gastrointestinal: no symptoms reported; No abdominal pain, No diarrhea, No loss of appetite, No nausea, No vomiting Genitourinary: no symptoms reported Musculoskeletal: see HPI, neck pain Skin: no symptoms reported Psychiatric/Neurological: See HPI; Denies Headache, Denies Numbness, Denies Paresthesia, Denies Seizure, Denies Tingling Hematologic/Lymphatic: No Symptoms Reported Immunological/Allergic: no symptoms reported Past [id number]-Uuelij Hx Patient Social History Tobacco Use?: No Use of E-Cig and/or Vaping dev: No Substance use?: No Alcohol Use?: No Immunizations Up To Date First/Initial COVID19 Vaccinat: 03/31/20 Second COVID19 Vaccination Chidi: 04/28/20 Third COVID19 Vaccination Date: 03/31/20 Past Medical History Surgery/Hospitalization HX: T&A COLONOSCOPY 06/[address] ORTEZ--POLYPECTOMY DONE Surgeries: Yes (BREAST BIOPSY, EGD, COLONOSCOPY) Adenoidectomy, Breast, Tonsillectomy Respiratory: No Cardiac: Yes High Cholesterol Neurological: Yes Genitourinary: No Gastrointestinal: Yes Gastroesophageal Reflux, Polyps Musculoskeletal: Yes (L1 COMPRESSION FRACTURE 2020) Arthritis, Fractures Endocrine: No HEENT: No (S/P TONSILLECTOMY) Cancer: No Psychosocial: Yes Depression Integumentary: No Blood Disorders: No Physical Exam Vital Signs Vital Signs - First Documented 02/13/21 02/13/21 20:34 20:42 Temp 36.6 Pulse 90 Resp 18 B/P (MAP) 170/91 (117) Pulse Ox 94 O2 Delivery Room Air O2 Flow Rate 2.00 FiO2 100 Capillary Refill : Less Than 3 Seconds Height, Weight, BMI Height: '" Weight: lbs. oz. kg; 30.00 BMI Method: General Appearance: No Apparent Distress, WD/WN HEENT: PERRL/EOMI, TMs Normal, Normal ENT Inspection, Pharynx Normal Neck: Supple, Tender Lateral, Tender Midline Respiratory: Normal Breath Sounds, No Accessory Muscle Use, No Respiratory Distress Cardiovascular: Regular Rate, Rhythm, No Edema, No JVD, No Murmur, Normal Peripheral Pulses Gastrointestinal: Normal Bowel Sounds, No Organomegaly, No Pulsatile Mass, Non Tender, Soft Back: Normal Inspection, No CVA Tenderness, No Vertebral Tenderness Extremity: Normal Capillary Refill, Normal Inspection, Normal Range of Motion, Non Tender, No Calf Tenderness, No Pedal Edema Neurologic/Psychiatric: Alert, No Motor/Sensory Deficits, Normal Mood/Affect, group sales coordinator II-XII Norm as Tested; No Aphasia, No Facial Droop, No Motor Weakness, No Sensory Deficit; Other (ORIENTED TO PERSON, PLACE, SITUTATION, KNOWS MONTH AND REJI IS ALMOST HERE, BUT DOES NOT KNOW DATE OR YEAR--STATED IT WAS 1921. NO CONFUSION OTHERWISE AND ABLE TO ANSWER ALL OTHER QUESTIONS APPROPRIATELY, EXCEPT A FEW TIMES DID HAVE DIFFICULTY FINDING A WORD. NO SLURRED SPEECH. ALL MOTOR SKILLS ARE INTACT AND PT ABLE TO FOLLOW COMMANDS. ) Skin: Normal Color, Warm/Dry; No Rash Focused Exam Sepsis Stage: Ruled Out Possible Source: Pulmonary Time of Focused Exam: 22:30 Respiratory: Normal Breath Sounds, No Accessory Muscle Use, No Respiratory Distress Cardiovascular: Regular Rate, Rhythm, No Edema, No Murmur Capillary Refill: Less Than 3 Seconds Skin: normal color, warm/dry Within 3hrs of presentation: Admin fluids, Admin ABX, Blood cultures prior to ABX's, Focus exam, Lactate level Progress/Results/Core Measures Suspected Sepsis SIRS Temperature: Pulse: 90 Respiratory Rate: 18 Laboratory Tests 02/13/21 20:40: White Blood Count 10.5 Blood Pressure 170 /91 Mean: 117 Laboratory Tests 02/13/21 20:40: Creatinine 0.74, INR Comment 1.0, Platelet Count 297, Total Bilirubin 0.5 Results/Orders Lab Results Laboratory Tests Test 02/13/21 20:40 02/13/21 20:47 02/13/21 21:10 Range/Units White Blood Count 10.5 4.3-11.0 10^3/uL Red Blood Count 4.94 3.80-5.11 10^6/uL Hemoglobin 15.0 11.5-16.0 g/dL Hematocrit 44 35-52 % Mean Corpuscular Volume 90 80-99 fL Mean Corpuscular Hemoglobin 30 25-34 pg Mean Corpuscular Hemoglobin Concent 34 32-36 g/dL Red Cell Distribution Width 14.5 10.0-14.5 % Platelet Count 297 130-400 10^3/uL Mean Platelet Volume 12.0 9.0-12.2 fL Immature Granulocyte % (Auto) 0 % Neutrophils (%) (Auto) 77 H 42-75 % Lymphocytes (%) (Auto) 14 12-44 % Monocytes (%) (Auto) 7 0-12 % Eosinophils (%) (Auto) 2 0-10 % Basophils (%) (Auto) 1 0-10 % Neutrophils # (Auto) 8.1 H 1.8-7.8 10^3/uL Lymphocytes # (Auto) 1.5 1.0-4.0 10^3/uL Monocytes # (Auto) 0.7 0.0-1.0 10^3/uL Eosinophils # (Auto) 0.2 0.0-0.3 10^3/uL Basophils # (Auto) 0.1 0.0-0.1 10^3/uL Immature Granulocyte # (Auto) 0.0 0.0-0.1 10^3/uL Erythrocyte Sedimentation Rate 31 H 0-30 MM/HR Prothrombin Time 13.1 12.2-14.7 SEC INR Comment 1.0 0.8-1.4 Activated Partial Thromboplast Time 37 H 24-35 SEC Sodium Level 135 135-145 MMOL/L Potassium Level 2.2 *L 3.6-5.0 MMOL/L Chloride Level 90 L 98-107 MMOL/L Carbon Dioxide Level 30 21-32 MMOL/L Anion Gap 15 H 5-14 MMOL/L Blood Urea Nitrogen 23 H 7-18 MG/DL Creatinine 0.74 0.60-1.30 MG/DL Estimat Glomerular Filtration Rate 76 BUN/Creatinine Ratio 31 Glucose Level 148 H 70-105 MG/DL Calcium Level 9.7 8.5-10.1 MG/DL Corrected Calcium 9.6 8.5-10.1 MG/DL Magnesium Level 2.1 1.6-2.4 MG/DL Total Bilirubin 0.5 0.1-1.0 MG/DL Aspartate Amino Transf (AST/SGOT) 22 5-34 U/L Alanine Aminotransferase (ALT/SGPT) 22 0-55 U/L Alkaline Phosphatase 108 40-136 U/L Ammonia 37 H 11-32 UMOL/L Total Creatine Kinase 33 29-168 U/L Creatine Kinase MB 0.5 <6.6 NG/ML Myoglobin 38.5 10.0-92.0 NG/ML Troponin I < 0.028 <0.028 NG/ML C-Reactive Protein High Sensitivity 2.22 H 0.00-0.50 MG/DL B-Type Natriuretic Peptide 17.6 <100.0 PG/ML Total Protein 7.8 6.4-8.2 GM/DL Albumin 4.1 3.2-4.5 GM/DL Influenza Type A (RT-PCR) Not Detected Not Detecte Influenza Type B (RT-PCR) Not Detected Not Detecte SARS-CoV-2 RNA (RT-PCR) Not Detected Not Detecte Urine Color YELLOW Urine Clarity CLEAR Urine pH 6.0 5-9 Urine Specific [place] 1.015 L 1.016-1.022 Urine Protein NEGATIVE NEGATIVE Urine Glucose (UA) NEGATIVE NEGATIVE Urine Ketones TRACE H NEGATIVE Urine Nitrite NEGATIVE NEGATIVE Urine Bilirubin 1+ H NEGATIVE Urine Urobilinogen 2.0 < = 1.0 MG/DL Urine Leukocyte Esterase NEGATIVE NEGATIVE Urine RBC (Auto) NEGATIVE NEGATIVE Urine RBC NONE /HPF Urine WBC 0-2 /HPF Urine Squamous Epithelial Cells 0-2 /HPF Urine Renal Epithelial Cells NONE /HPF Urine Crystals NONE /LPF Urine Bacteria NEGATIVE /HPF Urine Casts NONE /LPF Urine Mucus SMALL H /LPF Urine Culture Indicated NO My Orders Orders - ELVIRA DUFFY DO Ed Iv/Invasive Line Start (02/13/21 20:36) Ekg Tracing (02/13/21 20:36) Monitor-Rhythm Ecg Trace Only (02/13/21 20:36) Straight Cath For Spec.-Adult (02/13/21 20:36) Ct Head Wo-R/O Stroke (02/13/21 20:36) Chest 1 View, Ap/Pa Only (02/13/21 20:36) Ammonia (02/13/21 20:36) Bnp [place] (02/13/21 20:36) Cbc With Automated Diff (02/13/21 20:36) Comprehensive Metabolic Panel (02/13/21 20:36) Creatine Kinase (02/13/21 20:36) Creatine Kinase Mb (02/13/21 20:36) Hs C Reactive Protein (02/13/21 20:36) Magnesium (02/13/21 20:36) Protime With Inr (02/13/21 20:36) Partial Thromboplastin Time (02/13/21 20:36) Ua Culture If Indicated (02/13/21 20:36) Erythrocyte Sedimentation Rate (02/13/21 20:36) Myoglobin Serum (02/13/21 20:36) Troponin I [place] (02/13/21 20:36) Ed Iv/Invasive Line Start (02/13/21 20:36) Lactated Ringers (Lr 1000 Ml Iv Solution (02/13/21 20:45) Covid 19 Inhouse Test (02/13/21 20:43) Influenza A And B By Pcr (02/13/21 20:43) Isolation Central Supply Req (02/13/21 20:43) Ct Chest W (02/13/21 21:20) Ct Angio Head/Neck (02/13/21 21:20) 1/2 Ns Iv Solution (0.45% Sodium Chlorid (02/13/21 21:30) Potassium Cl 10meq/50ml Ivpb (Kcl 10 Meq (02/13/21 21:30) Iohexol Injection (Omnipaque 350 Mg/Ml 1 (02/13/21 22:30) Received Contrast (Hold Metformin- Contr (02/13/21 22:30) Sodium Chloride Flush (Catheter Flush Sy (02/13/21 22:30) Ns (Ivpb) (Sodium Chloride 0.9% Ivpb Bag (02/13/21 22:30) Blood Culture (02/13/21 22:42) Urine Culture (02/13/21 22:42) Ed Iv/Invasive Line Start (02/13/21 22:42) Ed Iv/Invasive Line Start (02/13/21 22:42) Vital Signs Adult Sepsis Patie Q15M (02/13/21 22:42) O2 (02/13/21 22:42) Remove Rings In Anticipation O (02/13/21 22:42) Lactic Acid Analyzer (02/13/21 22:42) Ceftriaxone 1 Gm Pre-Mix (Rocephin 1 Gm (02/13/21 22:45) Azithromycin Injection (Zithromax Inject (02/13/21 22:45) Medications Given in ED Current Medications Medications Dose Ordered Sig/Kelvin Route Start Time Stop Time Status Last Admin Dose Admin Iohexol 150 ml ONCE ONCE IV 02/13/21 22:30 02/13/21 22:31 DC 02/13/21 22:21 149 ML Lactated Ringer's 1,000 ml @ 0 mls/hr Q0M ONCE IV 02/13/21 20:45 02/13/21 20:46 DC 02/13/21 20:53 0 MLS/HR Sodium Chloride 10 ml NEEDED PRN IV 02/13/21 22:30 02/13/21 22:21 10 ML Sodium Chloride 100 ml ONCE ONCE IV 02/13/21 22:30 02/13/21 22:31 DC 02/13/21 22:21 100 ML Vital Signs/I&O 02/13/21 02/13/21 02/13/21 20:34 20:42 20:43 Temp 36.6 36.6 Pulse 90 90 Resp 18 18 B/P (MAP) 170/91 (117) 170/91 Pulse Ox 94 94 94 O2 Delivery Room Air Nasal Cannula Room Air O2 Flow Rate 2.00 FiO2 100 Capillary Refill : Less Than 3 Seconds Blood Pressure Mean: 117 Progress Note : Progress Note 0--PT ORIENTED X 4, KNOWS DAY OF WEEK, MONTH AND YEAR, AND SEASON. DOES SEEM SLIGHTLY FORGETFUL TO WHY SHE IS HERE EXACTLY,THAT SHE HAS AN IV AND WHY IT IS THERE, ETC., AND STATES SHE IS READY TO GO HOME, BECAUSE IT IS HER BEDTIME--STATES SHE GOES TO BED AT 11:00 PM, AND SON VERIFIES THIS. SPEECH IS CLEAR AND AT THIS TIME IS NOT HAVING DIFFICULTY FINDING WORDS. UNEVENTFUL ER STAY BOTH PT AND SON VERIFY THAT SHE WISHES TO BE A DNR/DNI ECG Initial ECG Impression Date: Feb 13, 2021 Initial ECG Impression Time: 20:31 Initial ECG Rate: 85 Initial ECG Rhythm: Normal Sinus Initial ECG Impression: Nonspecific Changes Diagnostic Imaging Comments CXR--PER RADIOLOGIST REPORT AT 2118 FINDINGS: The heart size is normal. There is some bibasilar subsegmental atelectasis and/or pneumonitis. There is no pleural effusion or pneumothorax. Mediastinum is unremarkable. IMPRESSION: Bibasilar subsegmental atelectasis and/or pneumonitis. CT HEAD--PER RADIOLOGIST REPORT AT 2118 FINDINGS: There is prominence of the ventricles and sulci. There is no hydrocephalus or cerebral edema. There is no midline shift or mass-effect. There is no intracranial mass, hemorrhage, or extra-axial fluid collection. There is some diffuse decreased attenuation of the periventricular white matter which is nonspecific. The visualized paranasal sinuses and mastoid air cells are clear. There are no regional areas of decreased attenuation appreciated to suggest an acute CVA. IMPRESSION: 1. No acute intracranial process. 2. Age-appropriate atrophy. 3. Decreased attenuation of the periventricular white matter which is nonspecific, however, likely reflects senescent change and/or chronic small vessel ischemic disease. CT CHEST--PER RADIOLOGIST REPORT AT 2239 There is some minimal bilateral groundglass infiltrates. There is no pleural or pericardial fluid. No pneumothorax. The thoracic aorta is normal in caliber without evidence of dissection. There are no filling defects within the pulmonary arteries to suggest pulmonary embolism. There is no pathologically enlarged adenopathy in the chest. There are some benign hepatic cysts. There is cholelithiasis. Remainder of the intra-abdominal structures are unremarkable. IMPRESSION: Patchy bilateral groundglass infiltrates possibly reflecting early pneumonia. Cholelithiasis. Benign hepatic cyst. No other acute cardiopulmonary abnormality. CT ANGIOGRAM HEAD/NECK--PER RADIOLOGIST REPORT AT 2239 FINDINGS: There is prominence of ventricles and sulci. There is some chronic microvascular ischemic disease. There is no hydrocephalus. No midline shift. No mass, hemorrhage or extra-axial fluid collection. The calvarium is intact. Sinuses and mastoid air cells are clear. There are no abnormal areas of contrast enhancement. There are no proximal intracranial branch occlusions, vascular malformations or aneurysms. The nasopharyngeal, oropharyngeal and hypopharyngeal tissues are symmetrical without mass effect. The parotid and submandibular glands normal in appearance. There is a low-density mass in the right lobe of thyroid. The lung apices are clear. The common carotid, vertebral and internal carotid arteries are widely patent. There is no dissection, stenosis or occlusion. There is no pathologically enlarged adenopathy or mass in the neck. There are mild degenerative changes in the cervical spine. The prevertebral soft tissues are within normal limits. The epiglottis is unremarkable. IMPRESSION: Atrophy and some chronic microvascular ischemic disease however no evidence of large vessel occlusion. Unremarkable CTA neck. Specifically there is no dissection, stenosis or occlusion. Degenerative changes in the cervical spine. Low-density lesion in the right lobe of the thyroid likely cysts however this can be better characterized with dedicated ultrasound of the thyroid. Reviewed: Reviewed by Me Departure Communication (Admissions) Family Conversation SON IS HERE, AND I SPOKE WITH DAUGHTER ON PHONE, SHORTLY AFTER PT ARRIVED AND UPDATED HER ON CONDITION. 2249--UPDATED DAUGHTER AND SON ON CONDITION, TEST RESULTS AND PLAN FOR ADMIT. 2243--SPOKE WITH DR. CAMEJO, ACCEPTS PT FOR ADMIT Impression Primary Impression: Generalized weakness Additional Impressions: Altered mental status Dehydration Hypokalemia RECENT MEDICATION CHANGE BIBASILAR INFILTRATES Disposition: 09 ADMITTED INPATIENT Condition: Stable Admissions Decision to Admit Reason: Admit from ER (General) Decision to Admit/Date: Feb 13, 2021 Time/Decision to Admit Time: 22:45 Departure-Patient Inst. Referrals: JOSE MARTIN CAMEJO MD (PCP/Family) Primary Care Physician ELVIRA DUFFY DO Feb 13, 2021 21:19
[2021-02-13 21:21] LABS: CREATINE KINASE MB 0.5 NG/ML (<6.6)
[2021-02-13 21:25] LABS: BACTERIA,URINE NEGATIVE /HPF; SQUAMOUS EPITHELIAL CELL,UR 0-2 /HPF; WBC,URINE 0-2 /HPF
[2021-02-13 21:26] LABS: POTASSIUM 2.2 MMOL/L (3.6-5.0)
[2021-02-13 21:26] LABS: BILIRUBIN,URINE 1+ (NEGATIVE)
[2021-02-13] MEDS ORDERED: 1/2 NS IV SOLUTION 1,000 ML IV SCH (21:30)
[2021-02-13] MEDS: POTASSIUM CL 10MEQ/50ML IVPB 50 ML IV SCH (22:16)
--- NOTE | 2021-02-13 22:23 | Diagnostic Imaging Report ---
PROCEDURE: CT chest with contrast only. TECHNIQUE: Multiple contiguous axial images were obtained through the chest after administration of intravenous contrast. Auto Exposure Controls were utilized during the CT exam to meet ALARA standards for radiation dose reduction. INDICATION: Altered mental status. There is some minimal bilateral groundglass infiltrates. There is no pleural or pericardial fluid. No pneumothorax. The thoracic aorta is normal in caliber without evidence of dissection. There are no filling defects within the pulmonary arteries to suggest pulmonary embolism. There is no pathologically enlarged adenopathy in the chest. There are some benign hepatic cysts. There is cholelithiasis. Remainder of the intra-abdominal structures are unremarkable. IMPRESSION: Patchy bilateral groundglass infiltrates possibly reflecting early pneumonia. Cholelithiasis. Benign hepatic cyst. No other acute cardiopulmonary abnormality. Dictated by: Dictated on workstation # [id number]
[2021-02-13] MEDS ORDERED: HOLD METFORMIN - RECEIVED CONTRAST 20 ML VIAL IV SCH (22:30)
[2021-02-13] MEDS ORDERED: NS 100 ML (IVPB) BAG IV ONE (22:30)
[2021-02-13] MEDS ORDERED: IOHEXOL 350 MG/ML 150 ML (OMNIPAQUE 350) VIAL IV ONE (22:30)
[2021-02-13] MEDS ORDERED: CATHETER FLUSH 10 ML SYR IV PRN (22:30)
--- NOTE | 2021-02-13 22:31 | Diagnostic Imaging Report ---
PROCEDURE: CT angiography of the head and CT angiography of the neck with and without contrast. TECHNIQUE: Contiguous noncontrast images were obtained from the skull base through the vertex. After intravenous contrast administration, helical CT angiography of the neck was performed. Source data was reformatted into 3D MIP projections. Delayed post contrast acquisition was also obtained. Auto Exposure Controls were utilized during the CT exam to meet ALARA standards for radiation dose reduction. INDICATION: Altered mental status. FINDINGS: There is prominence of ventricles and sulci. There is some chronic microvascular ischemic disease. There is no hydrocephalus. No midline shift. No mass, hemorrhage or extra-axial fluid collection. The calvarium is intact. Sinuses and mastoid air cells are clear. There are no abnormal areas of contrast enhancement. There are no proximal intracranial branch occlusions, vascular malformations or aneurysms. The nasopharyngeal, oropharyngeal and hypopharyngeal tissues are symmetrical without mass effect. The parotid and submandibular glands normal in appearance. There is a low-density mass in the right lobe of thyroid. The lung apices are clear. The common carotid, vertebral and internal carotid arteries are widely patent. There is no dissection, stenosis or occlusion. There is no pathologically enlarged adenopathy or mass in the neck. There are mild degenerative changes in the cervical spine. The prevertebral soft tissues are within normal limits. The epiglottis is unremarkable. IMPRESSION: Atrophy and some chronic microvascular ischemic disease however no evidence of large vessel occlusion. Unremarkable CTA neck. Specifically there is no dissection, stenosis or occlusion. Degenerative changes in the cervical spine. Low-density lesion in the right lobe of the thyroid likely cysts however this can be better characterized with dedicated ultrasound of the thyroid. Dictated by: Dictated on workstation # [id number]
[2021-02-13] MEDS ORDERED: AZITHROMYCIN INJECTION 500 MG in NS (IVPB) 250 ML IV ONE (22:45)
[2021-02-13] MEDS ORDERED: cefTRIAXone 1 GM PRE-MIX 50 ML IV ONE (22:45)
[2021-02-13] MEDS ORDERED: ACETAMINOPHEN 500 MG TAB (TYLENOL) PO ONE (23:00)
[2021-02-14] VITALS (9 sets, daily range): BP systolic 132–180; BP diastolic 71–93
[2021-02-14] MEDS ORDERED: D5 1/2 NS W/KCL 40 MEQ/L 1,000 ML IV ONE (01:25)
[2021-02-14] MEDS: D5 1/2 NS W/KCL 40 MEQ/L 1,000 ML IV SCH ×3 (02:04→15:39)
[2021-02-14] MEDS: POTASSIUM CL 10MEQ/50ML IVPB 50 ML IV SCH ×6 (02:14→16:00)
[2021-02-14] MEDS ORDERED: NOREPINEPHRINE 8 MG/250 ML 250 ML IV SCH (02:15)
[2021-02-14] MEDS ORDERED: VASOPRESSIN INJECTION 20 UNIT in NS (IVPB) 100 ML IV SCH (02:15)
[2021-02-14] MEDS ORDERED: EPINEPHrine 1 MG INJECTION 4 MG in NS (IVPB) 248 ML IV SCH (02:15)
[2021-02-14] MEDS ORDERED: RT-ALBUTEROL SULF 2.5 MG/3 ML PRE-MIX VIAL INH PRN (02:45)
[2021-02-14 06:36] LABS: BASOPHILS % (AUTO) 0 % (0-10); EOSINOPHILS # (AUTO) 0.1 10^3/uL (0.0-0.3); EOSINOPHILS % (AUTO) 1 % (0-10); HEMATOCRIT 39 % (35-52); HEMOGLOBIN 13.3 g/dL (11.5-16.0); LYMPHOCYTES # (AUTO) 1.6 10^3/uL (1.0-4.0); LYMPHOCYTES % (AUTO) 17 % (12-44); MEAN CORPUSCULAR HEMOGLOBIN 31 pg (25-34); MEAN CORPUSCULAR HGB CONC 34 g/dL (32-36); MEAN CORPUSCULAR VOLUME 89 fL (80-99); MEAN PLATELET VOLUME 12.3 fL (9.0-12.2); MONOCYTES # (AUTO) 0.7 10^3/uL (0.0-1.0); MONOCYTES % (AUTO) 8 % (0-12); NEUTROPHILS # (AUTO) 6.6 10^3/uL (1.8-7.8); NEUTROPHILS % (AUTO) 74 % (42-75); PLATELET COUNT 247 10^3/uL (130-400); WHITE BLOOD COUNT 8.9 10^3/uL (4.3-11.0)
[2021-02-14 06:52] LABS: CALCIUM 8.9 MG/DL (8.5-10.1); CREATININE SERUM 0.61 MG/DL (0.60-1.30)
[2021-02-14 07:03] LABS: POTASSIUM 2.5 MMOL/L (3.6-5.0)
[2021-02-14] MEDS ORDERED: KCL 20 MEQ TAB (K-DUR) PO ONE ×2 (07:30→16:00)
--- NOTE | 2021-02-14 08:25 | History & Physical ---
History of Present Illness History of Present Illness Reason for visit/HPI PT IS AN 80 Y/O FEMALE WHO IS KNOWN TO ME FROM CLINIC. SHE HAS HISTORY OF COMPRESSION FRACTURE OF SPINE WITH KYPHOPLASTY SHE WAS BROUGHT TO THE ER DUE TO CONFUSION AND WEAKNESS - FOUND TO HAVE SEVERE HYPERTENSION AND HYPOKALEMIA AND ADMITTED TO THE HOSPITAL FOR FURTHER WORK UP AND MANAGEMENT. Date of Admission Feb 13, 2021 at 22:44 Date Seen by a Provider: Feb 14, 2021 Time Seen by a Provider: 08:25 I consulted on this patient on 02/14/21 08:25 Attending Physician Jose Martin Ferrer MD Admitting Physician Jose Martin Ferrer MD Consult Allergies and Home Medications Allergies Coded Allergies: NKANo Known Allergies (Verified Allergy, Unknown, 08/06/06) Patient Home Medication List Home Medication List Reviewed: Yes Calcitonin,[place],Synthetic (Calcitonin-[place]) 3.7 Ml [place].pump, 1 SPRAY NS DAILY, (Reported) Entered as Reported by: LINDA CASTRO on 02/14/211417 Last Action: Continued Calcium Carbonate (Tums Smoothies) 300 Mg Tab.chew, 300 MG PO QID, (Reported) Entered as Reported by: LINDA CASTRO on 02/14/211420 Last Action: Held Cetirizine HCl (Zyrtec) 10 Mg Tablet, 10 MG PO DAILY, (Reported) Entered as Reported by: LINDA CASTRO on 02/14/211422 Last Action: Converted Cholecalciferol (Vitamin D3) (Vitamin D3) 50 Mcg Capsule, 100 MCG PO DAILY, (Reported) Entered as Reported by: LINDA CASTRO on 02/14/211425 Last Action: Held Duloxetine HCl (Duloxetine HCl) 30 Mg Capsule.dr, 30 MG PO BID, (Reported) Entered as Reported by: LINDA CASTRO on 02/14/211417 Last Action: Continued Gemfibrozil (Gemfibrozil) 600 Mg Tablet, 600 MG PO BID, (Reported) Entered as Reported by: LINDA CASTRO on 02/14/211417 Last Action: Continued Melatonin (Melatonin) 5 Mg Tablet, 5 MG PO HS, (Reported) Entered as Reported by: LINDA CASTRO on 02/14/211421 Last Action: Converted Multivitamin (Multi-Vitamin Daily) 1 Each Tablet, 1 EACH PO DAILY, (Reported) Entered as Reported by: LINDA CASTRO on 02/14/211417 Last Action: Held [place]-3S/Dha/Epa/Fish Oil (Fish Oil [place]-3 Softgel) 1 Each Capsule.dr, 2 EACH PO DAILY, (Reported) Entered as Reported by: LINDA CASTRO on 02/14/211421 Last Action: Held Omeprazole (Omeprazole) 20 Mg Capsule.dr, 20 MG PO DAILY, (Reported) Entered as Reported by: LINDA CASTRO on 02/14/211417 Last Action: Continued [Glucosamine Chondroi] TAB, (Reported) Entered as Reported by: LENI ARIAS on 08/06/062048 Last Action: Held Discontinued Medications Calcium Carbonate (Tums) 500 Mg Tab.chew, (Reported) Discontinued Reason: No Longer Taking Entered as Reported by: LENI ARIAS on 08/06/062051 Last Action: Discontinued Calcium Carbonate (Tums X-Str) 300 Mg Tab.chew, 300 MG PO QID, (Reported) Discontinued Reason: No Longer Taking Entered as Reported by: LINDA CASTRO on 02/14/211420 Last Action: Discontinued Cholecalciferol (Vitamin D3) (Vitamin D3) 125 Mcg Capsule, 125 MCG PO DAILY, (Reported) Discontinued Reason: Prescription changed Entered as Reported by: LINDA CASTRO on 02/14/211418 Last Action: New Order Cyclobenzaprine HCl (Cyclobenzaprine HCl) 10 Mg Tablet, 10 MG PO Q8H PRN for SPASMS Discontinued Reason: No Longer Taking Prescribed by: PAUL BANSAL on 09/25/20 191 Last Action: Discontinued Fexofenadine Hcl (Olena) 60 Mg Capsule, (Reported) Discontinued Reason: No Longer Taking Entered as Reported by: LENI ARIAS on 08/06/062043 Last Action: Discontinued Gemfibrozil (Lopid) 600 Mg Tablet, (Reported) Discontinued Reason: No Longer Taking Entered as Reported by: LENI ARIAS on 08/06/062043 Last Action: Discontinued Multivitamins (Vitamins (Multi-Vit)) 1 Ea Tablet, (Reported) Discontinued Reason: No Longer Taking Entered as Reported by: LENI ARIAS on 08/06/062048 Last Action: Discontinued [place] 3 Polyunsat Fatty Acids (Fish Oil) 1,000 Mg Cap, (Reported) Discontinued Reason: No Longer Taking Entered as Reported by: LENI ARIAS on 08/06/062049 Last Action: Discontinued Ondansetron (Ondansetron Odt) 8 Mg Tab.rapdis, 8 MG PO Q6H PRN for NAUSEA/VOMITING Discontinued Reason: No Longer Taking Prescribed by: SULMA ROY on 09/20/201408 Last Action: Discontinued Polyethylene Glycol 3350 (Miralax) 17 Gm Powd.pack, 17 GM PO QID Discontinued Reason: No Longer Taking Prescribed by: SULMA ROY on 09/20/201408 Last Action: Discontinued Raloxifene Hcl (Evista) 60 Mg Tablet, (Reported) Discontinued Reason: No Longer Taking Entered as Reported by: LENI ARIAS on 08/06/062044 Last Action: Discontinued Sulfamethoxazole/Trimethoprim (Bactrim DS) 1 Each Tablet, 1 EACH PO BID Discontinued Reason: No Longer Taking Prescribed by: PIERO LEZAMA MD on 04/04/09 1204 Last Action: Discontinued [Allergy Sinus] TAB, (Reported) Discontinued Reason: No Longer Taking Entered as Reported by: LENI ARIAS on 08/06/062049 Last Action: Discontinued [Prilosec ] 20 MG TAB, (Reported) Discontinued Reason: No Longer Taking Entered as Reported by: LENI ARIAS on 08/06/062045 Last Action: Discontinued Past Rivavtr-Axmwdd-Mibuxg Hx Patient Social History Marrital Status: Number of Children: 2 Number of living children: 2 Living Status: LIVES WITH SON IN HER HOME Employed/Student: retired Tobacco Use?: No Smoking Status: Never a Smoker Smokeless Tobacco Frequency: Never a User Use of E-Cig and/or Vaping dev: No Substance use?: No Alcohol Use?: No Pt feels they are or have been: No Immunizations Up To Date Date of Influenza Vaccine: Feb 14, 2021 First/Initial COVID19 Vaccinat: 03/31/20 Second COVID19 Vaccination Chidi: 04/28/20 Tetanus Booster (TDap): More Than 5 Years Current Status status: No status: No Advance Directives: No Communicates: Verbally Primary Language: [place] Preferred Spoken Language: [place] Is interpretation needed?: No Sensory deficits: Vision impairment Implanted or Applied Medical D: None Past Medical History Surgeries: Adenoidectomy, Breast, Tonsillectomy High Cholesterol Gastroesophageal Reflux, Polyps Arthritis, Fractures Depression Blood Disorders: No Family Medical History Reviewed and Corrections made Hypertension Review of Systems Constitutional: No chills, No fever; malaise, weakness EENTM: No hoarseness, No throat pain Respiratory: No cough, No dyspnea on exertion, No short of breath Cardiovascular: No chest pain, No palpitations Gastrointestinal: No abdominal pain, No constipation, No diarrhea, No nausea Genitourinary: no symptoms reported Musculoskeletal: muscle weakness Skin: no symptoms reported Psychiatric/Neurological: Denies Anxiety; Depressed, Weakness, Other (CONFUSION) All Other Systems Reviewed Negative Unless Noted: Yes Physical Exam Vital Signs Vital Signs - First Documented 02/13/21 02/13/21 20:34 20:42 Temp 36.6 Pulse 90 Resp 18 B/P (MAP) 170/91 (117) Pulse Ox 94 O2 Delivery Room Air O2 Flow Rate 2.00 FiO2 100 Capillary Refill : Less Than 3 Seconds Height, Weight, BMI Height: '" Weight: lbs. oz. kg; 32.53 BMI Method: General Appearance: No Apparent Distress, WD/WN Eyes: Bilateral Eye Normal Inspection, Bilateral Eye PERRL, Bilateral Eye EOMI HEENT: PERRL/EOMI Neck: Full Range of Motion, Normal Inspection, Non Tender, Supple Respiratory: Chest Non Tender, Lungs Clear, Normal Breath Sounds, No Accessory Muscle Use, No Respiratory Distress Cardiovascular: Regular Rate, Rhythm, Normal Peripheral Pulses, Systolic Murmur Gastrointestinal: Normal Bowel Sounds, Non Tender, Soft Rectal: Deferred Back: Normal Inspection Extremity: Normal Capillary Refill, Normal Inspection, Normal Range of Motion, Non Tender, No Calf Tenderness, No Pedal Edema Neurologic/Psychiatric: Alert, Oriented x3, Normal Mood/Affect Skin: Normal Color, Warm/Dry Lymphatic: No Adenopathy Assessment/Plan Assessment and Plan SEVERE HYPOKALEMIA HYPERTENSIVE URGENCY EARLY PNEUMONIA BACK PAIN RECENT COMPRESSION FRACTURE WEAKNESS CONFUSION SEVERE HYPOKALEMIA - REPLACE WITH IV AND ORAL POTASSIUM - SERIAL LABS CHECK MAG LEVEL WELL HYPERTENSIVE URGENCY - PRN HYDRALAZINE, MONITOR PRESSURES, HOPEFULLY WILL RETURN TO BASELINE WITH TREATMENT OF ACUTE ILLNESSES EARLY PNEUMONIA - IV ANTIBIOTICS, MONITOR CHEST XRAYS BACK PAIN WITH HX OF RECENT COMPRESSION FRACTURE AND KYPHOPLASTY - SUPPORTIVE CARE AND THERAPY WEAKNESS AND CONFUSION - THERAPY AND SUPPORTIVE CARE, SUSPECT DELIRIUM Admission Diagnosis SEVERE HYPOKALEMIA HYPERTENSIVE URGENCY EARLY PNEUMONIA BACK PAIN RECENT COMPRESSION FRACTURE WEAKNESS CONFUSION Admission Status: Inpatient Order (span 2 midnights) Reason for Inpatient Admission: INPT ADMISSION FOR HYPOKALEMIA AND HYPERTENSION - WILL REQUIRE AT LEAST 72HOURS FOR STABILIZATION AND FURTHER WORK-UP JOSE MARTIN FERRER MD Feb 14, 2021 08:25
[2021-02-14] MEDS ORDERED: MAGNESIUM 1 GM/100 ML IVPB 100 ML IV ONE (08:30)
[2021-02-14] MEDS: ACETAMINOPHEN 500 MG TAB (TYLENOL) PO PRN ×2 (09:03→15:57)
[2021-02-14] MEDS ORDERED: GEMF600T88 PO (14:18)
[2021-02-14] MEDS ORDERED: OMEP20CA18 PO (14:18)
[2021-02-14] MEDS ORDERED: CALC3.8S NS (14:18)
[2021-02-14] MEDS ORDERED: MULT-974 PO (14:18)
[2021-02-14] MEDS ORDERED: DULO30CA49 PO (14:18)
[2021-02-14] MEDS ORDERED: CHOL500050 PO (14:19)
[2021-02-14] MEDS ORDERED: CALC-778 PO (14:21)
[2021-02-14] MEDS ORDERED: CALC-870 PO (14:21)
[2021-02-14] MEDS ORDERED: MELA5TAB14 PO (14:22)
[2021-02-14] MEDS ORDERED: OMEG-154 PO (14:22)
[2021-02-14] MEDS ORDERED: CETI10TA49 PO (14:23)
[2021-02-14] MEDS ORDERED: CHOL200074 PO (14:26)
[2021-02-14] MEDS: AZITHROMYCIN 500 MG/NS 250 ML IVPB IV SCH ×2 (20:46)
[2021-02-14] MEDS: cefTRIAXone 1 GM IV (PRE-MIX) 50 ML IV SCH (20:46)
[2021-02-15] MEDS: D5 1/2 NS W/KCL 40 MEQ/L 1,000 ML IV SCH ×5 (02:09→21:31)
[2021-02-15 03:45] VITALS: BP 187/96
[2021-02-15 05:51] LABS: HEMATOCRIT 40 % (35-52); HEMOGLOBIN 13.6 g/dL (11.5-16.0); MEAN CORPUSCULAR HEMOGLOBIN 30 pg (25-34); MEAN CORPUSCULAR HGB CONC 34 g/dL (32-36); MEAN CORPUSCULAR VOLUME 89 fL (80-99); MEAN PLATELET VOLUME 12.4 fL (9.0-12.2); PLATELET COUNT 268 10^3/uL (130-400); WHITE BLOOD COUNT 9.2 10^3/uL (4.3-11.0)
[2021-02-15 06:04] LABS: ALBUMIN 3.6 GM/DL (3.2-4.5); POTASSIUM 3.4 MMOL/L (3.6-5.0)
[2021-02-15 06:05] LABS: CALCIUM 8.9 MG/DL (8.5-10.1)
[2021-02-15 06:06] LABS: TOTAL PROTEIN 6.8 GM/DL (6.4-8.2)
[2021-02-15 06:08] LABS: BILIRUBIN,TOTAL 0.5 MG/DL (0.1-1.0)
[2021-02-15 06:10] LABS: CREATININE SERUM 0.63 MG/DL (0.60-1.30)
[2021-02-15 07:25] VITALS: BP 196/96
[2021-02-15] MEDS ORDERED: KCL 20 MEQ TAB (K-DUR) PO ONE (08:45)
[2021-02-15] MEDS: ACETAMINOPHEN 500 MG TAB (TYLENOL) PO PRN ×2 (09:15→17:55)
[2021-02-15] MEDS: GEMFIBROZIL 600 MG (LOPID) TAB PO SCH ×2 (09:20→19:46)
[2021-02-15] MEDS: DULoxetine 30 MG (CYMBALTA) CAP PO SCH (09:20)
--- NOTE | 2021-02-15 09:20 | Progress Note ---
Subjective Subjective Date Seen by Provider: Feb 15, 2021 Time Seen by Provider: 09:00 PT SLIGHTLY CONFUSED THIS MORNING COMPARED TO YESTERDAY DISCUSSED WITH PT'S DTR ON THE PHONE, SHE NOTES HER MOM HAS DECLINED SINCE THE COMPRESSION FRACTURE. Review of Systems General: No Chills; Fatigue HEENT: No Head Aches, No Dysphasia Pulmonary: No Dyspnea, No Cough Gastrointestinal: No: Nausea, Abdominal Pain Genitourinary: No Dysuria Musculoskeletal: back pain (SLIGHT) Neurological: Weakness, Confusion (MILD) Objective Exam Vital Signs Vital Signs Date Time Temp Pulse Resp B/P (MAP) Pulse Ox O2 Delivery O2 Flow Rate FiO2 02/15/21 07:25 36.6 86 20 196/96 (129) 94 Nasal Cannula 1.00 02/15/21 07:00 92 02/15/21 03:45 36.6 85 20 187/96 (126) 95 Nasal Cannula 1.00 02/15/21 01:00 86 02/14/21 23:20 36.8 86 18 173/93 (119) 95 Nasal Cannula 1.00 02/14/21 20:00 36.7 83 20 145/76 (99) 95 Nasal Cannula 1.00 02/14/21 20:00 Nasal Cannula 2.00 02/14/21 19:52 98 Nasal Cannula 1.00 02/14/21 19:00 97 02/14/21 16:00 36.4 104 20 151/71 (97) 94 Nasal Cannula 1.00 02/14/21 15:19 96 Nasal Cannula 2.00 02/14/21 12:41 83 02/14/21 11:46 37.2 76 20 156/79 (104) 93 1.00 l I & O 02/15/21 07:00 Intake Total 2400 ml Output Total 2250 ml Balance 150 ml General Appearance: No Apparent Distress, WD/WN HEENT: PERRL/EOMI, TMs Normal, Normal ENT Inspection, Pharynx Normal Neck: Supple, Tender Lateral, Tender Midline Respiratory: Normal Breath Sounds, No Accessory Muscle Use, No Respiratory Distress Cardiovascular: Regular Rate, Rhythm, No Edema, No Murmur Gastrointestinal: Normal Bowel Sounds, No Organomegaly, No Pulsatile Mass, Non Tender, Soft Back: Normal Inspection, No CVA Tenderness, No Vertebral Tenderness Extremity: Normal Capillary Refill, Normal Inspection, Normal Range of Motion, Non Tender, No Calf Tenderness, No Pedal Edema Neurologic/Psychiatric: Alert, No Motor/Sensory Deficits, Normal Mood/Affect, librarian assistant II-XII Norm as Tested; No Aphasia, No Facial Droop, No Motor Weakness, No Sensory Deficit; Other (ORIENTED TO PERSON, PLACE, SITUTATION, KNOWS MONTH AND REJI IS ALMOST HERE, BUT DOES NOT KNOW DATE OR YEAR--STATED IT WAS 1921. NO CONFUSION OTHERWISE AND ABLE TO ANSWER ALL OTHER QUESTIONS APPROPRIATELY, EXCEPT A FEW TIMES DID HAVE DIFFICULTY FINDING A WORD. NO SLURRED SPEECH. ALL MOTOR SKILLS ARE INTACT AND PT ABLE TO FOLLOW COMMANDS. ) Skin: Normal Color, Warm/Dry; No Rash Results Lab Laboratory Tests 02/15/21 05:30: White Blood Count 9.2, Red Blood Count 4.51, Hemoglobin 13.6, Hematocrit 40, Mean Corpuscular Volume 89, Mean Corpuscular Hemoglobin 30, Mean Corpuscular Hemoglobin Concent 34, Red Cell Distribution Width 14.7H, Platelet Count 268, Mean Platelet Volume 12.4H, Sodium Level 135, Potassium Level 3.4L, Chloride Level 99, Carbon Dioxide Level 24, Anion Gap 12, Blood Urea Nitrogen 9, Creatinine 0.63, Estimat Glomerular Filtration Rate 91, BUN/Creatinine Ratio 14, Glucose Level 136H, Calcium Level 8.9, Corrected Calcium 9.2, Magnesium Level 2.0, Total Bilirubin 0.5, Aspartate Amino Transf (AST/SGOT) 21, Alanine Aminotransferase (ALT/SGPT) 15, Alkaline Phosphatase 91, Total Protein 6.8, Albumin 3.6 Microbiology 02/13/21 Blood Culture - Preliminary, Resulted No growth Assessment/Plan Assessment/Plan Assessment and Plan SEVERE HYPOKALEMIA HYPERTENSIVE URGENCY EARLY PNEUMONIA BACK PAIN RECENT COMPRESSION FRACTURE WEAKNESS CONFUSION SEVERE HYPOKALEMIA - REPLACE WITH IV AND ORAL POTASSIUM - SERIAL LABS CHECK MAG LEVEL WELL HYPERTENSIVE URGENCY - CHECK RENAL ARTERY US, CONSULT TO DR. DE LA CRUZ EARLY PNEUMONIA - IV ANTIBIOTICS, MONITOR CHEST XRAYS BACK PAIN WITH HX OF RECENT COMPRESSION FRACTURE AND KYPHOPLASTY - SUPPORTIVE CARE AND THERAPY WEAKNESS AND CONFUSION - THERAPY AND SUPPORTIVE CARE, SUSPECT DELIRIUM FROM HOSPITALIZATION, WILL MONITOR OVER THE NEXT FEW DAYS- MAY CHECK MRI JOSE MARTIN CAMEJO MD Feb 15, 2021 09:20
--- NOTE | 2021-02-15 09:59 | Consultation-Cardiology ---
HPI-Cardiology Cardiology Consultation: Date of Consultation 02/15/21 Time Seen by a Provider: 11:30 Date of Admission 02-13-21 Attending Physician Cara Ferrer MD Admitting Physician Cara Ferrer MD Consulting Physician Tomasa Estrada MD HPI: Chief Complaint: Uncontrolled HTN Ms. Dowell is an 80 yr old female admitted to 424 from the ED with AMS. She is oriented to self and place, but she is unable to answer any questions about events leading up to her admission or any of her past medical history. Per her nurse today and the ED notes she was brought in by her son, whom she lives with, d/t altered mental status, confusion. She is not reporting any c/o CP, palpitations or SOB. She is c/o a dry mouth. Review of Systems-Cardiology Review of Systems Other comments ROS to the extent it could be obtained is as per [facility] RTX-Lspfmn-Gpnsav Hx Patient Social History Smoking Status: Never a Smoker Have you traveled recently?: No Alcohol Use?: No Pt feels they are or have been: No Immunizations Up To Date Date of Influenza Vaccine: Feb 14, 2021 Past Medical History PMH As described under Assessment. Family Medical History Family Medical History: Unable to obtain d/t patients confusion Allergies and Home Medications Allergies Coded Allergies: NKANo Known Allergies (Verified Allergy, Unknown, 08/06/06) Patient Home Medication List Calcitonin,Oak,Synthetic (Calcitonin-Oak) 3.7 Ml [place].pump, 1 SPRAY NS DAILY, (Reported) Entered as Reported by: LINDA CASTRO on 02/14/21 1418 Last Action: Continued Calcium Carbonate (Tums Smoothies) 300 Mg Tab.chew, 300 MG PO QID, (Reported) Entered as Reported by: LINDA CASTRO on 02/14/21 1421 Last Action: Held Cetirizine HCl (Zyrtec) 10 Mg Tablet, 10 MG PO DAILY, (Reported) Entered as Reported by: LINDA CASTRO on 02/14/21 1423 Last Action: Converted Cholecalciferol (Vitamin D3) (Vitamin D3) 50 Mcg Capsule, 100 MCG PO DAILY, (Reported) Entered as Reported by: LINDA CASTRO on 02/14/21 1426 Last Action: Held Duloxetine HCl (Duloxetine HCl) 30 Mg Capsule.dr, 30 MG PO BID, (Reported) Entered as Reported by: LINDA CASTRO on 02/14/211417 Last Action: Continued Gemfibrozil (Gemfibrozil) 600 Mg Tablet, 600 MG PO BID, (Reported) Entered as Reported by: LINDA CASTRO on 02/14/211417 Last Action: Continued Melatonin (Melatonin) 5 Mg Tablet, 5 MG PO HS, (Reported) Entered as Reported by: LINDA CASTRO on 02/14/211421 Last Action: Converted Multivitamin (Multi-Vitamin Daily) 1 Each Tablet, 1 EACH PO DAILY, (Reported) Entered as Reported by: LINDA CASTRO on 02/14/211417 Last Action: Held Adams-3S/Dha/Epa/Fish Oil (Fish Oil Adams-3 Softgel) 1 Each Capsule.dr, 2 EACH PO DAILY, (Reported) Entered as Reported by: LINDA CASTRO on 02/14/211421 Last Action: Held Omeprazole (Omeprazole) 20 Mg Capsule.dr, 20 MG PO DAILY, (Reported) Entered as Reported by: LINDA CASTRO on 02/14/211417 Last Action: Continued [Glucosamine Chondroi] TAB, (Reported) Entered as Reported by: LENI ARIAS on 08/06/062048 Last Action: Held Discontinued Medications Calcium Carbonate (Tums) 500 Mg Tab.chew, (Reported) Discontinued Reason: No Longer Taking Entered as Reported by: LENI ARIAS on 08/06/062051 Last Action: Discontinued Calcium Carbonate (Tums X-Str) 300 Mg Tab.chew, 300 MG PO QID, (Reported) Discontinued Reason: No Longer Taking Entered as Reported by: LINDA CASTRO on 02/14/211420 Last Action: Discontinued Cholecalciferol (Vitamin D3) (Vitamin D3) 125 Mcg Capsule, 125 MCG PO DAILY, (Reported) Discontinued Reason: Prescription changed Entered as Reported by: LINDA CASTRO on 02/14/211418 Last Action: New Order Cyclobenzaprine HCl (Cyclobenzaprine HCl) 10 Mg Tablet, 10 MG PO Q8H PRN for SPASMS Discontinued Reason: No Longer Taking Prescribed by: PAUL BANSAL on 09/25/201911 Last Action: Discontinued Fexofenadine Hcl (Olena) 60 Mg Capsule, (Reported) Discontinued Reason: No Longer Taking Entered as Reported by: LENI ARIAS on 08/06/062043 Last Action: Discontinued Gemfibrozil (Lopid) 600 Mg Tablet, (Reported) Discontinued Reason: No Longer Taking Entered as Reported by: LENI ARIAS on 08/06/062043 Last Action: Discontinued Multivitamins (Vitamins (Multi-Vit)) 1 Ea Tablet, (Reported) Discontinued Reason: No Longer Taking Entered as Reported by: LENI ARIAS on 08/06/062048 Last Action: Discontinued Adams 3 Polyunsat Fatty Acids (Fish Oil) 1,000 Mg Cap, (Reported) Discontinued Reason: No Longer Taking Entered as Reported by: LENI ARIAS on 08/06/062049 Last Action: Discontinued Ondansetron (Ondansetron Odt) 8 Mg Tab.rapdis, 8 MG PO Q6H PRN for NAUSEA/VOMITING Discontinued Reason: No Longer Taking Prescribed by: SULMA ROY on 09/20/201408 Last Action: Discontinued Polyethylene Glycol 3350 (Miralax) 17 Gm Powd.pack, 17 GM PO QID Discontinued Reason: No Longer Taking Prescribed by: SULMA ROY on 09/20/201408 Last Action: Discontinued Raloxifene Hcl (Evista) 60 Mg Tablet, (Reported) Discontinued Reason: No Longer Taking Entered as Reported by: LENI ARIAS on 08/06/062044 Last Action: Discontinued Sulfamethoxazole/Trimethoprim (Bactrim DS) 1 Each Tablet, 1 EACH PO BID Discontinued Reason: No Longer Taking Prescribed by: PIERO LEZAMA MD on 04/04/09 1204 Last Action: Discontinued [Allergy Sinus] TAB, (Reported) Discontinued Reason: No Longer Taking Entered as Reported by: LENI ARIAS on 08/06/062049 Last Action: Discontinued [Prilosec ] 20 MG TAB, (Reported) Discontinued Reason: No Longer Taking Entered as Reported by: LENI ARIAS on 08/06/062045 Last Action: Discontinued Physical Exam-Cardiology Physical Exam Vital Signs/I&O 02/15/21 02/15/21 02/15/21 02/15/21 01:00 03:45 07:00 07:25 Temp 36.6 36.6 Pulse 86 85 92 86 Resp 20 20 B/P (MAP) 187/96 (126) 196/96 (129) Pulse Ox 95 94 O2 Delivery Nasal Cannula Nasal Cannula O2 Flow Rate 1.00 1.00 02/15/21 02/15/21 08:00 11:42 Temp 36.3 Pulse 78 Resp 20 B/P (MAP) 153/85 (107) Pulse Ox 93 O2 Delivery Nasal Cannula Room Air O2 Flow Rate 2.00 02/14/21 23:59 Intake Total 1050 ml Output Total 800 ml Balance 250 ml Capillary Refill : Less Than 3 Seconds Constitutional: No AAO x 3 (Oriented to self and place only); well-developed, well-nourished HEENT: PERRL, hearing is well preserved, oral hygience is good Neck: No carotid bruit; carotid pulses are 2 + bilaterally Respiratory: No accessory muscle use, No respiratory distress; chest expansion is symmetric, chest is bilaterally symmetric, other (diminished bases bilat) Cardiovascular: regular rate-rhythm; No JVD; S1 and S2 Gastrointestinal: No tender; soft, round, audible bowel sounds Extremities: no lower extremity edema bilateral Neurologic/Psychiatric: grossly intact (moves all extremities) Skin: No rash on exposed areas, No ulcerations on exposed areas Data Review Labs Laboratory Tests 02/15/21 05:30: White Blood Count 9.2, Red Blood Count 4.51, Hemoglobin 13.6, Hematocrit 40, Mean Corpuscular Volume 89, Mean Corpuscular Hemoglobin 30, Mean Corpuscular Hemoglobin Concent 34, Red Cell Distribution Width 14.7H, Platelet Count 268, Mean Platelet Volume 12.4H, Sodium Level 135, Potassium Level 3.4L, Chloride Level 99, Carbon Dioxide Level 24, Anion Gap 12, Blood Urea Nitrogen 9, Creatinine 0.63, Estimat Glomerular Filtration Rate 91, BUN/Creatinine Ratio 14, Glucose Level 136H, Calcium Level 8.9, Corrected Calcium 9.2, Magnesium Level 2.0, Total Bilirubin 0.5, Aspartate Amino Transf (AST/SGOT) 21, Alanine Aminotransferase (ALT/SGPT) 15, Alkaline Phosphatase 91, Total Protein 6.8, Albumin 3.6 Microbiology 02/13/21 Blood Culture - Preliminary, Resulted No growth 02/13/21 Urine Culture - Final, Complete NO GROWTH Radiology NAME: CRYSTAL DOWELL [facility] REC#: [id number] PT STATUS: REG ER : 1940 PHYSICIAN: ELVIRA DUFFY DO ADMIT DATE: 02/13/21/ER Signed Date of Exam:02/13/21 CHEST 1 VIEW, AP/PA ONLY INDICATION: Altered mental status and weakness. FINDINGS: The heart size is normal. There is some bibasilar subsegmental atelectasis and/or pneumonitis. There is no pleural effusion or pneumothorax. Mediastinum is unremarkable. IMPRESSION: Bibasilar subsegmental atelectasis and/or pneumonitis. Dictated by: Dictated on workstation # [id number] Dict: 02/13/212101 Trans: 02/13/212208 CVB [id number] Interpreted by: RICKY CASH MD Electronically signed by: RICKY CASH MD 02/13/212208 NAME: JIMMYCRYSTAL GUNTER [facility] REC#: [id number] PT STATUS: REG ER : 1940 PHYSICIAN: ELVIRA DUFFY DO ADMIT DATE: 02/13/21/ER Signed Date of Exam:02/13/21 CT CHEST W PROCEDURE: CT chest with contrast only. TECHNIQUE: Multiple contiguous axial images were obtained through the chest after administration of intravenous contrast. Auto Exposure Controls were utilized during the CT exam to meet ALARA standards for radiation dose reduction. INDICATION: Altered mental status. There is some minimal bilateral groundglass infiltrates. There is no pleural or pericardial fluid. No pneumothorax. The thoracic aorta is normal in caliber without evidence of dissection. There are no filling defects within the pulmonary arteries to suggest pulmonary embolism. There is no pathologically enlarged adenopathy in the chest. There are some benign hepatic cysts. There is cholelithiasis. Remainder of the intra-abdominal structures are unremarkable. IMPRESSION: Patchy bilateral groundglass infiltrates possibly reflecting early pneumonia. Cholelithiasis. Benign hepatic cyst. No other acute cardiopulmonary abnormality. Dictated by: Dictated on workstation # [id number] Dict: 02/13/212219 Trans: 02/13/212233 CVB [id number] Interpreted by: RICKY CASH MD Electronically signed by: RICKY CASH MD 02/13/212233 NAME: CRYSTAL DOWELL [facility] REC#: [id number] PT STATUS: REG ER : 1940 PHYSICIAN: ELVIRA DUFFY DO ADMIT DATE: 02/13/21/ER Signed Date of Exam:02/13/21 CT ANGIO HEAD/NECK PROCEDURE: CT angiography of the head and CT angiography of the neck with and without contrast. TECHNIQUE: Contiguous noncontrast images were obtained from the skull base through the vertex. After intravenous contrast administration, helical CT angiography of the neck was performed. Source data was reformatted into 3D MIP projections. Delayed post contrast acquisition was also obtained. Auto Exposure Controls were utilized during the CT exam to meet ALARA standards for radiation dose reduction. INDICATION: Altered mental status. FINDINGS: There is prominence of ventricles and sulci. There is some chronic microvascular ischemic disease. There is no hydrocephalus. No midline shift. No mass, hemorrhage or extra-axial fluid collection. The calvarium is intact. Sinuses and mastoid air cells are clear. There are no abnormal areas of contrast enhancement. There are no proximal intracranial branch occlusions, vascular malformations or aneurysms. The nasopharyngeal, oropharyngeal and hypopharyngeal tissues are symmetrical without mass effect. The parotid and submandibular glands normal in appearance. There is a low-density mass in the right lobe of thyroid. The lung apices are clear. The common carotid, vertebral and internal carotid arteries are widely patent. There is no dissection, stenosis or occlusion. There is no pathologically enlarged adenopathy or mass in the neck. There are mild degenerative changes in the cervical spine. The prevertebral soft tissues are within normal limits. The epiglottis is unremarkable. IMPRESSION: Atrophy and some chronic microvascular ischemic disease however no evidence of large vessel occlusion. Unremarkable CTA neck. Specifically there is no dissection, stenosis or occlusion. Degenerative changes in the cervical spine. Low-density lesion in the right lobe of the thyroid likely cysts however this can be better characterized with dedicated ultrasound of the thyroid. Dictated by: Dictated on workstation # [id number] Dict: 02/13/212225 Trans: 02/13/212233 CV [id number] Interpreted by: RICKY CASH MD Electronically signed by: RICKY CASH MD 02/13/212233 ECG Impression ECG Initial ECG Rhythm: Normal Sinus A/P-Cardiology Assessment/Admission Diagnosis AMS - confusion - undetermined etiology - management per medical services Uncontrolled HTN Pneumonia - management per medical services H/O chronic back pain Hypokalemia - undetermined etiology - replace Discussion and Recomendations Uncontrolled HTN - Echocardiogram to eval structure and function - Increase BB dose - Renal artery u/s has been done per medical services Management of pneumonia per medical services AMS - confusion - management per medical services Monitor lab closely Replace electrolytes Further recs will be based on her hospital course We would like to thank Dr. Ferrer for this consult STEPHANIE DAVIES Feb 15, 2021 09:59
[2021-02-15] MEDS: CALCITONIN NASAL 200 INTLU/AC (FORTICAL) 3.7 ML BTL NS SCH (10:54)
[2021-02-15 11:42] VITALS: BP 153/85
--- NOTE | 2021-02-15 11:53 | Diagnostic Imaging Report ---
INDICATION: Pneumonia COMPARISON: 02/13/2021 TECHNIQUE: Frontal and lateral radiographs of the chest dated 02/15/2021. FINDINGS: The cardiac silhouette is within normal limits in size. No significant pulmonary vascular congestion. Low lung volumes are again identified. Improved aeration of the lungs with improved and essentially resolved bibasilar interstitial opacities. No new focal pulmonary opacity. No significant pleural effusion. No pneumothorax. No acute osseous abnormality. IMPRESSION: Improved aeration of the lungs with essentially resolved bibasilar atelectasis and/or pneumonitis. Persistent low lung volumes. Dictated by: Dictated on workstation # [id number]
--- NOTE | 2021-02-15 14:19 | Diagnostic Imaging Report ---
INDICATION: Hypertension. FINDINGS: Right kidney measures 10 x 4.6 x 5.3 cm. Left kidney measures 10 x 5.3 x 5.1 cm. The arcuate resistive index on the right is 0.67, left 0.69. Maximum renal arterial Doppler velocity on the right is 89 with renal artery/aortic ratio of 0.53. Maximal velocity left renal artery is 123 with renal artery/aortic ratio of 0.74. IMPRESSION: Normal-appearing kidneys bilaterally. No Doppler findings are seen that would suggest hemodynamic renal artery stenosis. Dictated by: Dictated on workstation # [id number]
--- NOTE | 2021-02-15 14:40 | Physical Therapy Evaluation ---
PT Evaluation-General Medical Diagnosis Admission Date Feb 14, 2021 at 08:26 Medical Diagnosis: AMS, bilateral Pneumonia, HTN Onset Date: Feb 13, 2021 Therapy Diagnosis Therapy Diagnosis: Gait deficit, strength deficit Precautions Precautions/Isolations: Fall Prevention, Standard Precautions Referral Physician: Dr. Ferrer Reason for Referral: Evaluation/Treatment Social History Home: Multilevel Current Living Status: Other Family Entry Into Home: Stairs With Railing PT Steps Into Home: 14 PT Steps Inside Home: 5 Prior Prior Level of Function SCALE: Activities may be completed with or without assistive devices. 6-Vqxmuzmalp-pjmfwwr completes the activity by him/herself with no assistance from a helper. 5-Set-up or Clean-up Assistance-helper sets up or cleans up; patient completes activity. [place] assists only prior to or following the activity. 4-Supervision or Touching Assistance-helper provides verbal cues and/or touching/steadying and/or contact guard assistance as patient completes activity. Assistance may be provided throughout the activity or intermittently. 3-Partial/Moderate Assistance-helper does LESS THAN HALF the effort. [place] lifts, holds or supports trunk or limbs, but provides less than half the effort. 2-Substantial/Maximal Assistance-helper does MORE THAN HALF the effort. [place] lifts or holds trunk or limbs and provides more than half the effort. 7-Cbvytlnzx-ilsmgt does ALL the effort. Patient does none of the effort to complete the activity. Or, the assistance of 2 or more helpers is required for the patient to complete the activity. If activity was not attempted, code reason: 7-Patient Refused. 9-Not Applicable-not attempted and the patient did not perform the activity before the current illness, exacerbation or injury. 10-Not Attempted due to Environmental Limitations-(lack of equipment, weather restraints, etc.). 88-Not Attempted due to Medical Conditions or Safety Concerns. Bed Mobility: 6 Transfers (B,C,W/C): 6 Gait: 6 Stairs: 6 Indoor Mobility (Ambulation): Independent Stairs: Not [place] Prior Devices Use: Walker Prior Device Use: Has a chair lift to go up stairs PT Evaluation-Current Subjective Patient lying supine in bed upon PT arrival, agreeable to treatment. Patient rates pain at 0/10 currently. Objective Patient Orientation: Person Attachments: IV ROM/Strength ROM Lower Extremities WFLs bilaterally all planes Strength Lower Extremities 3+/5 bilaterally all hip, knee and ankle planes Sensory Vision: Wears Glasses Hearing: Functional Sensation Right Lower Extremit: Intact Sensation Left Lower Extremity: Intact Transfers Roll Left to Right (QC): 4 Sit to Lying (QC): 4 Lying to Sitting/Side of Bed(Q: 4 Sit to Stand (QC): 3 Chair/Fjw-tn-Tqvnm Xfer(QC): 3 Gait Does the Patient Walk?: Yes Mode of Locomotion: Walk Anticipated Mode of Locomotion: Walk Walk 10 feet (QC): 4 Walk 50 ft with 2 Turns(QC): 4 Distance: 60 Gait Assistive Device: FWW Balance Sitting Static: Fair Sitting Dynamic: Fair Standing Static: Fair Standing Dynamic: Fair Assessment/Needs Patient tolerated treatment well, but is mildly confused. When asked if she has walked yet today, she reports, "Yes, we went to [facility]." When asked what town, she said "[place]". Patient performs all observed bed mobility with SBA and all transfers with min a. Patient ambulates 60 feet with FWW, with min a and verbal cues for safety, progression, posture and control of FWW. Rehab Potential: Fair PT Mcfp Goals Social Services Director Goals PT Social Services Director Goals Time Frame: Feb 25, 2021 Roll Left & Right (QC): 5 Sit to Lying (QC): 5 Lying-Sitting on Side/Bed(QC): 5 Sit to Stand (QC): 5 Chair/Tsv-eb-Seyfb Xfer(QC): 5 Toilet Transfer (QC): 5 Car Transfer (QC): 5 Does the Patient Walk: Yes Walk 10 feet (QC): 5 Walk 50ft with 2 Turns (QC): 5 Walk 150 ft (QC): 5 1 Step (curb) (QC): 4 4 Steps (QC): 4 12 Steps (QC): 4 PT Plan Problem List Problem List: Activity Tolerance, Functional Strength, Safety, Balance, Gait, Transfer, Bed Mobility, ROM Treatment/Plan Treatment Plan: Continue Plan of Care Treatment Plan: Bed Mobility, Education, Functional Activity Ana, Functional Strength, Group Therapy, Gait, Safety, Therapeutic Exercise, Transfers Treatment Duration: Mar 26, 2021 Frequency: 6 times per week Estimated Hrs Per Day: .25 hour per day Patient and/or Family Agrees t: Yes Safety Risks/Education Patient Education: Gait Training Teaching Recipient: Patient Teaching Methods: Demonstration, Discussion Response to Teaching: Reinforcement Needed Discharge Recommendations Target Placement Home with 24 hour assistance. Time/GCodes Time In: 1410 Time Out: 1430 Total Billed Treatment Time: 20 Total Billed Treatment Visit, PALLAVI Barber PT Feb 15, 2021 14:40
[2021-02-15 16:00] VITALS: BP 189/88
[2021-02-15] MEDS ORDERED: amLODIPine 5 MG (NORVASC) TAB PO NR ×2 (17:00→18:15)
--- NOTE | 2021-02-15 18:30 | Consultation-Cardiology ---
HPI-Cardiology Cardiology Consultation: Date of Consultation 02/15/21 Time Seen by a Provider: 17:50 Date of Admission Attending Physician Cara Ferrer MD Admitting Physician Cara Ferrer MD Consulting Physician LADONNA DE LA CRUZ MD, MA, FACP, FACC, FSCAI, CCDS Physician requesting Card consult: Dr Ferrer HPI: Chief Complaint: Reason for cardiology consult: Uncontrolled HTN HPI Ms. Voss is an 80 yr old female admitted to 424 from the ED with AMS. She is oriented to self and place, but she is unable to answer any questions about events leading up to her admission or any of her past medical history. Per her nurse today and the ED notes she was brought in by her son, whom she lives with, d/t altered mental status, confusion. She is not reporting any c/o CP, palpitations or SOB. She is c/o a dry mouth. Review of Systems-Cardiology Review of Systems Constitutional: other (She is unable to provide a reliable ROS because she remains moderately confused) QOC-Euzjgq-Iefsmk Hx Patient Social History Smoking Status: Never a Smoker Have you traveled recently?: No Alcohol Use?: No Pt feels they are or have been: No Immunizations Up To Date Date of Influenza Vaccine: Feb 14, 2021 Past Medical History PMH As described under Assessment. Family Medical History Family Medical History: Unable to obtain d/t patients confusion Allergies and Home Medications Allergies Coded Allergies: NKANo Known Allergies (Verified Allergy, Unknown, 08/06/06) Patient Home Medication List Home Medication List Reviewed: Yes Calcitonin,[place],Synthetic (Calcitonin-[place]) 3.7 Ml [place].pump, 1 SPRAY NS DAILY, (Reported) Entered as Reported by: LINDA CASTRO on 02/14/21 1418 Last Action: Continued Calcium Carbonate (Tums Smoothies) 300 Mg Tab.chew, 300 MG PO QID, (Reported) Entered as Reported by: LINDA CASTRO on 02/14/21 1421 Last Action: Held Cetirizine HCl (Zyrtec) 10 Mg Tablet, 10 MG PO DAILY, (Reported) Entered as Reported by: LINDA CASTRO on 02/14/21 1423 Last Action: Converted Cholecalciferol (Vitamin D3) (Vitamin D3) 50 Mcg Capsule, 100 MCG PO DAILY, (Reported) Entered as Reported by: LINDA CASTRO on 12/20/21 1426 Last Action: Held Duloxetine HCl (Duloxetine HCl) 30 Mg Capsule.dr, 30 MG PO BID, (Reported) Entered as Reported by: LINDA CASTRO on 02/14/211417 Last Action: Continued Gemfibrozil (Gemfibrozil) 600 Mg Tablet, 600 MG PO BID, (Reported) Entered as Reported by: LINDA CASTRO on 02/14/211417 Last Action: Continued Melatonin (Melatonin) 5 Mg Tablet, 5 MG PO HS, (Reported) Entered as Reported by: LINDA CASTRO on 02/14/211421 Last Action: Converted Multivitamin (Multi-Vitamin Daily) 1 Each Tablet, 1 EACH PO DAILY, (Reported) Entered as Reported by: LINDA CASTRO on 02/14/211417 Last Action: Held [place]-3S/Dha/Epa/Fish Oil (Fish Oil [place]-3 Softgel) 1 Each Capsule.dr, 2 EACH PO DAILY, (Reported) Entered as Reported by: LINDA CASTRO on 02/14/211421 Last Action: Held Omeprazole (Omeprazole) 20 Mg Capsule.dr, 20 MG PO DAILY, (Reported) Entered as Reported by: LINDA CASTRO on 02/14/211417 Last Action: Continued [Glucosamine Chondroi] TAB, (Reported) Entered as Reported by: LENI ARIAS on 08/06/062048 Last Action: Held Discontinued Medications Calcium Carbonate (Tums) 500 Mg Tab.chew, (Reported) Discontinued Reason: No Longer Taking Entered as Reported by: LENI ARIAS on 08/06/062051 Last Action: Discontinued Calcium Carbonate (Tums X-Str) 300 Mg Tab.chew, 300 MG PO QID, (Reported) Discontinued Reason: No Longer Taking Entered as Reported by: LINDA CASTRO on 02/14/211420 Last Action: Discontinued Cholecalciferol (Vitamin D3) (Vitamin D3) 125 Mcg Capsule, 125 MCG PO DAILY, (Reported) Discontinued Reason: Prescription changed Entered as Reported by: LINDA CASTRO on 02/14/211418 Last Action: New Order Cyclobenzaprine HCl (Cyclobenzaprine HCl) 10 Mg Tablet, 10 MG PO Q8H PRN for SPASMS Discontinued Reason: No Longer Taking Prescribed by: PAUL BANSAL on 09/25/201911 Last Action: Discontinued Fexofenadine Hcl (Olena) 60 Mg Capsule, (Reported) Discontinued Reason: No Longer Taking Entered as Reported by: LENI ARIAS on 08/06/062043 Last Action: Discontinued Gemfibrozil (Lopid) 600 Mg Tablet, (Reported) Discontinued Reason: No Longer Taking Entered as Reported by: LENI ARIAS on 08/06/062043 Last Action: Discontinued Multivitamins (Vitamins (Multi-Vit)) 1 Ea Tablet, (Reported) Discontinued Reason: No Longer Taking Entered as Reported by: LENI ARIAS on 08/06/062048 Last Action: Discontinued [place] 3 Polyunsat Fatty Acids (Fish Oil) 1,000 Mg Cap, (Reported) Discontinued Reason: No Longer Taking Entered as Reported by: LENI ARIAS on 08/06/062049 Last Action: Discontinued Ondansetron (Ondansetron Odt) 8 Mg Tab.rapdis, 8 MG PO Q6H PRN for NAUSEA/VOMITING Discontinued Reason: No Longer Taking Prescribed by: SULMA ROY on 09/20/201408 Last Action: Discontinued Polyethylene Glycol 3350 (Miralax) 17 Gm Powd.pack, 17 GM PO QID Discontinued Reason: No Longer Taking Prescribed by: SULMA ROY on 09/20/201408 Last Action: Discontinued Raloxifene Hcl (Evista) 60 Mg Tablet, (Reported) Discontinued Reason: No Longer Taking Entered as Reported by: LENI ARIAS on 08/06/062044 Last Action: Discontinued Sulfamethoxazole/Trimethoprim (Bactrim DS) 1 Each Tablet, 1 EACH PO BID Discontinued Reason: No Longer Taking Prescribed by: PIERO LEZAMA MD on 04/04/09 1204 Last Action: Discontinued [Allergy Sinus] TAB, (Reported) Discontinued Reason: No Longer Taking Entered as Reported by: LENI ARIAS on 08/06/062049 Last Action: Discontinued [Prilosec ] 20 MG TAB, (Reported) Discontinued Reason: No Longer Taking Entered as Reported by: LENI ARIAS on 08/06/062045 Last Action: Discontinued Physical Exam-Cardiology Physical Exam Vital Signs/I&O 02/15/21 02/15/21 02/15/21 02/15/21 07:00 07:25 08:00 11:42 Temp 36.6 36.3 Pulse 92 86 78 Resp 20 20 B/P (MAP) 196/96 (129) 153/85 (107) Pulse Ox 94 93 O2 Delivery Nasal Cannula Nasal Cannula Room Air O2 Flow Rate 1.00 2.00 02/15/21 02/15/21 13:00 16:00 Temp 37.1 Pulse 93 82 Resp 18 B/P (MAP) 189/88 (121) Pulse Ox 94 O2 Delivery Room Air 02/14/21 23:59 Intake Total 1050 ml Output Total 800 ml Balance 250 ml Capillary Refill : Less Than 3 Seconds Constitutional: No AAO x 3 (Oriented to self and place only); well-developed, well-nourished HEENT: PERRL, hearing is well preserved, oral hygience is good Neck: No carotid bruit; carotid pulses are 2 + bilaterally Respiratory: No accessory muscle use, No respiratory distress; chest expansion is symmetric, chest is bilaterally symmetric, other (diminished bases bilat) Cardiovascular: regular rate-rhythm; No JVD; S1 and S2 Gastrointestinal: No tender; soft, round, audible bowel sounds Extremities: no lower extremity edema bilateral Neurologic/Psychiatric: grossly intact (moves all extremities) Skin: No rash on exposed areas, No ulcerations on exposed areas Data Review Labs Laboratory Tests 02/15/21 05:30: White Blood Count 9.2, Red Blood Count 4.51, Hemoglobin 13.6, Hematocrit 40, Mean Corpuscular Volume 89, Mean Corpuscular Hemoglobin 30, Mean Corpuscular Hemoglobin Concent 34, Red Cell Distribution Width 14.7H, Platelet Count 268, Mean Platelet Volume 12.4H, Sodium Level 135, Potassium Level 3.4L, Chloride Level 99, Carbon Dioxide Level 24, Anion Gap 12, Blood Urea Nitrogen 9, Creatinine 0.63, Estimat Glomerular Filtration Rate 91, BUN/Creatinine Ratio 14, Glucose Level 136H, Calcium Level 8.9, Corrected Calcium 9.2, Magnesium Level 2.0, Total Bilirubin 0.5, Aspartate Amino Transf (AST/SGOT) 21, Alanine Aminotransferase (ALT/SGPT) 15, Alkaline Phosphatase 91, Total Protein 6.8, Albumin 3.6, Thyroid Stimulating Hormone (TSH) 1.15 Microbiology 02/13/21 Blood Culture - Preliminary, Resulted No growth 02/13/21 Urine Culture - Final, Complete NO GROWTH A/P-Cardiology Assessment/Admission Diagnosis AMS - confusion - undetermined etiology - management per Medical services Uncontrolled HTN - Echo on 02/15/21: LVEF 60-65%, mild MR, mild AI, grade 1 diastolic dysfunction, PASP 25 - 30 mmHg Pneumonia - management per Medical services H/O chronic back pain Hypokalemia - undetermined etiology - replace Discussion and Recomendations Increase beta-heron. Add amlodipine. Oral hydralazine for prn use Management of pneumonia per Medical services AMS - confusion - management per Medical services Monitor lab closely Replace electrolytes We would like to thank Dr. Ferrer for this consult LADONNA DE LA CRUZ MD FACP FACC CCDS Feb 15, 2021 18:30
[2021-02-15 19:37] VITALS: BP 195/95
[2021-02-15] MEDS: hydrALAZINE (APRESOLINE) 25 MG TAB PO PRN (19:46)
[2021-02-15] MEDS: MELATONIN 10 MG TABLET PO SCH (19:46)
[2021-02-15] MEDS: AZITHROMYCIN 500 MG/NS 250 ML IVPB IV SCH ×2 (19:47)
[2021-02-15] MEDS: cefTRIAXone 1 GM IV (PRE-MIX) 50 ML IV SCH (19:47)
[2021-02-15 20:45] VITALS: BP 129/79
[2021-02-16] VITALS (7 sets, daily range): BP systolic 138–197; BP diastolic 69–91
[2021-02-16] MEDS: hydrALAZINE (APRESOLINE) 25 MG TAB PO PRN ×2 (01:11→16:34)
[2021-02-16] MEDS: ACETAMINOPHEN 500 MG TAB (TYLENOL) PO PRN ×2 (01:11→08:46)
[2021-02-16 06:18] LABS: POTASSIUM 5.1 MMOL/L (3.6-5.0)
[2021-02-16 06:19] LABS: CALCIUM 9.2 MG/DL (8.5-10.1)
[2021-02-16 06:23] LABS: CREATININE SERUM 0.61 MG/DL (0.60-1.30)
[2021-02-16 06:25] LABS: MAGNESIUM 1.9 MG/DL (1.6-2.4)
[2021-02-16] MEDS: meTOproloL SUCCINATE 50 MG (TOPROL XL) TAB PO SCH (08:45)
[2021-02-16] MEDS: DULoxetine 30 MG (CYMBALTA) CAP PO SCH (08:45)
[2021-02-16] MEDS: PANTOPRAZOLE 20 MG TABLET (PROTONIX) PO SCH (08:45)
[2021-02-16] MEDS: GEMFIBROZIL 600 MG (LOPID) TAB PO SCH ×2 (08:45→20:04)
[2021-02-16] MEDS: LORATADINE (CLARITIN) 10 MG TAB PO SCH (08:45)
[2021-02-16] MEDS: amLODIPine 5 MG (NORVASC) TAB PO SCH (08:46)
[2021-02-16] MEDS: CALCITONIN NASAL 200 INTLU/AC (FORTICAL) 3.7 ML BTL NS SCH (08:46)
[2021-02-16] MEDS ORDERED: amLODIPine 5 MG (NORVASC) TAB PO SCH (09:00)
--- NOTE | 2021-02-16 09:14 | Progress Note ---
Subjective Subjective Date Seen by Provider: Feb 16, 2021 Time Seen by Provider: 09:10 PER COMMERCIAL LINES ASSISTANT, YESTERDAY AFTERNOON SHE HAD TROUBLE TELLING HER WHERE SHE LIVED AND WHO SHE LIVED WITH. THIS IS NOT USUAL FOR THE PATIENT. THIS MORNING THE PATIENT IS MUCH BETTER THAN WAS REPORTED BY CLINIC SCHEDULER PHYSICAL THERAPY IS WORKING WITH PT - SHE IS ABLE TO REPORT WHO SHE LIVES WITH, HER DTR'S NAME AND PROFESSION, THE LOCATION SHE IS IN CURRENTLY ETC. Review of Systems General: No Chills; Fatigue HEENT: No Head Aches, No Dysphasia Pulmonary: No Dyspnea, No Cough Gastrointestinal: No: Nausea, Abdominal Pain Genitourinary: No Dysuria Musculoskeletal: back pain (SLIGHT) Neurological: Weakness, Confusion (IMPROVED) All Other Systems Reviewed All Other Systems Reviewed: Yes Objective Exam Vital Signs Vital Signs Date Time Temp Pulse Resp B/P (MAP) Pulse Ox O2 Delivery O2 Flow Rate FiO2 02/16/21 07:42 36.6 90 16 184/86 (118) 95 Room Air 02/16/21 07:00 87 02/16/21 04:30 36.6 78 20 148/71 (96) 93 Room Air 02/16/21 02:00 143/69 (93) 02/16/21 01:00 101 02/16/21 00:50 37.4 102 18 197/91 (126) 94 Room Air 02/15/21 20:45 98 20 129/79 (96) 94 Room Air 02/15/21 20:00 Nasal Cannula 2.00 02/15/21 19:37 37.4 85 18 195/95 (128) 93 Room Air 02/15/21 19:00 85 02/15/21 16:00 37.1 82 18 189/88 (121) 94 Room Air 02/15/21 13:00 93 02/15/21 11:42 36.3 78 20 153/85 (107) 93 Room Air I & O 02/16/21 07:00 Intake Total 1290 ml Output Total 1500 ml Balance -210 ml General Appearance: No Apparent Distress, WD/WN Eyes: Bilateral Eye Normal Inspection, Bilateral Eye PERRL, Bilateral Eye EOMI HEENT: PERRL/EOMI, TMs Normal, Normal ENT Inspection, Pharynx Normal Neck: Supple, Tender Lateral, Tender Midline Respiratory: Normal Breath Sounds, No Accessory Muscle Use, No Respiratory Distress Cardiovascular: Regular Rate, Rhythm, No Edema, No Murmur Gastrointestinal: Normal Bowel Sounds, No Organomegaly, No Pulsatile Mass, Non Tender, Soft Rectal: Deferred Back: Normal Inspection, No CVA Tenderness, No Vertebral Tenderness Extremity: Normal Capillary Refill, Normal Inspection, Normal Range of Motion, Non Tender, No Calf Tenderness, No Pedal Edema Neurologic/Psychiatric: Alert, Oriented x3, No Motor/Sensory Deficits, Normal Mood/Affect, binder stripper machine II-XII Norm as Tested; No Aphasia, No Facial Droop, No Motor Weakness, No Sensory Deficit Skin: Normal Color, Warm/Dry; No Rash Lymphatic: No Adenopathy Results Lab Laboratory Tests 02/16/21 05:00: Sodium Level 135, Potassium Level 5.1H, Chloride Level 105, Carbon Dioxide Level 19L, Anion Gap 11, Blood Urea Nitrogen 7, Creatinine 0.61, Estimat Glomerular Filtration Rate 94, BUN/Creatinine Ratio 11, Glucose Level 119H, Calcium Level 9.2, Magnesium Level 1.9 Microbiology 02/13/21 Blood Culture - Preliminary, Resulted No growth 02/13/21 Urine Culture - Final, Complete NO GROWTH Assessment/Plan Assessment/Plan Admission Dx SEVERE HYPOKALEMIA HYPERTENSIVE URGENCY EARLY PNEUMONIA BACK PAIN RECENT COMPRESSION FRACTURE WEAKNESS CONFUSION Assessment and Plan SEVERE HYPOKALEMIA HYPERTENSIVE URGENCY EARLY PNEUMONIA BACK PAIN RECENT COMPRESSION FRACTURE WEAKNESS CONFUSION SEVERE HYPOKALEMIA - REPLACE WITH IV AND ORAL POTASSIUM - SERIAL LABS CHECK MAG LEVEL WELL HYPERTENSIVE URGENCY - CHECK RENAL ARTERY US, CONSULT TO DR. DE LA CRUZ EARLY PNEUMONIA - IV ANTIBIOTICS, MONITOR CHEST XRAYS BACK PAIN WITH HX OF RECENT COMPRESSION FRACTURE AND KYPHOPLASTY - SUPPORTIVE CARE AND THERAPY WEAKNESS AND CONFUSION - THERAPY AND SUPPORTIVE CARE, SUSPECT DELIRIUM FROM HOSPITALIZATION, WILL MONITOR OVER THE NEXT FEW DAYS- MAY CHECK MRI - STOP CYMBALTA - MRI OF BRAIN WITH AND WITHOUT CONTRAST Admission Dx SEVERE HYPOKALEMIA HYPERTENSIVE URGENCY EARLY PNEUMONIA BACK PAIN RECENT COMPRESSION FRACTURE WEAKNESS CONFUSION Clinical Quality Measures Admission Status Admission Dx SEVERE HYPOKALEMIA HYPERTENSIVE URGENCY EARLY PNEUMONIA BACK PAIN RECENT COMPRESSION FRACTURE WEAKNESS CONFUSION JOSE MARTIN CAMEJO MD Feb 16, 2021 09:14
--- NOTE | 2021-02-16 09:51 | Physical Therapy Daily Note ---
PT Daily Note-Current Subjective Patient sitting up in chair upon PT arrival, agreeable to treatment. Mental Status Patient Orientation: Person, Place Transfers SCALE: Activities may be completed with or without assistive devices. 9-Jwtnpmital-qesveyy completes the activity by him/herself with no assistance from a helper. 5-Set-up or Clean-up Assistance-helper sets up or cleans up; patient completes activity. [place] assists only prior to or following the activity. 4-Supervision or Touching Assistance-helper provides verbal cues and/or touching/steadying and/or contact guard assistance as patient completes activity. Assistance may be provided throughout the activity or intermittently. 3-Partial/Moderate Assistance-helper does LESS THAN HALF the effort. [place] lifts, holds or supports trunk or limbs, but provides less than half the effort. 2-Substantial/Maximal Assistance-helper does MORE THAN HALF the effort. [place] lifts or holds trunk or limbs and provides more than half the effort. 1-Bsrpqxfxb-fawyhu does ALL the effort. Patient does none of the effort to complete the activity. Or, the assistance of 2 or more helpers is required for the patient to complete the activity. If activity was not attempted, code reason: 7-Patient Refused. 9-Not Applicable-not attempted and the patient did not perform the activity before the current illness, exacerbation or injury. 10-Not Attempted due to Environmental Limitations-(lack of equipment, weather restraints, etc.). 88-Not Attempted due to Medical Conditions or Safety Concerns. Sit to Stand (QC): 3 Chair/Kpg-mp-Cwcov Xfer(QC): 3 Gait Training Does the Patient Walk?: Yes Distance: 110 ft Walk 10 feet (QC): 4 Walk 50 ft with 2 Turns(QC): 4 Gait Assistive Device: FWW Exercises Supine Ex: Ankle pumps, Quad Set, Glut sets, Heel Slides, Short Arc Quads, Straight leg raise, Hip abd/add Supine Reps: 20 Assessment Current Status: Good Progress Patient tolerated treatment well. Patient performs LE therapeutic exercise as listed above. Patient performs sit to stand with min A. Patient ambulates 110 feet with FWW, with CGA and verbal cues for safety, progression and balance. Patient in chair post treatment with all needs met, nursing notified, call light in reach. PT Senior Care Goals Senior Care Goals PT Senior Care Goals Time Frame: Feb 25, 2021 Roll Left & Right (QC): 5 Sit to Lying (QC): 5 Lying-Sitting on Side/Bed(QC): 5 Sit to Stand (QC): 5 Chair/Qbd-ba-Fwmhj Xfer(QC): 5 Toilet Transfer (QC): 5 Car Transfer (QC): 5 Does the Patient Walk: Yes Walk 10 feet (QC): 5 Walk 50ft with 2 Turns (QC): 5 Walk 150 ft (QC): 5 Walking 10ft on Uneven Surface: 88 1 Step (curb) (QC): 4 4 Steps (QC): 4 12 Steps (QC): 4 Picking up an Object (QC): 88 Does the Pt use WC or Scooter?: No Wheel 50 feet with 2 turns (QC: 88 Wheel 150 feet: 88 PT Plan Treatment/Plan Treatment Plan: Continue Plan of Care Treatment Plan: Bed Mobility, Education, Functional Activity Ana, Functional Strength, Group Therapy, Gait, Safety, Therapeutic Exercise, Transfers Treatment Duration: Mar 26, 2021 Frequency: 6 times per week Estimated Hrs Per Day: .25 hour per day Patient and/or Family Agrees t: Yes Safety Risks/Education Patient Education: Gait Training, Transfer Techniques Teaching Recipient: Patient Teaching Methods: Demonstration, Discussion Response to Teaching: Verbalize Understanding, Return Demonstration, Reinforcement Needed Time/GCodes Time In: 914 Time Out: 944 Total Billed Treatment Time: 30 Total Billed Treatment Visit, Ex, PALLAVI Griffiths PT Feb 16, 2021 09:51
[2021-02-16] MEDS ORDERED: GADOTERATE 0.5 MMOL/ML (CLARISCAN) 15 ML VIAL IV ONE (10:30)
--- NOTE | 2021-02-16 12:06 | Diagnostic Imaging Report ---
PROCEDURE: MR imaging of the brain with and without contrast. TECHNIQUE: Multiplanar, multisequence MR imaging of the brain was performed with and without contrast. INDICATION: Increasing confusion. COMPARISON: No prior MRI brain studies are available for comparison. FINDINGS: The study is moderately compromised due to patient motion. Patient was unable to hold still throughout the entire exam. This particularly limits the postcontrast images. Ventricles and sulci are appropriate for the patient's age. No acute intra-axial or extra-axial hemorrhage is detected. There are periventricular white matter changes consistent with chronic microvascular ischemia. No diffusion restriction is identified. The normal expected flow voids within the carotid siphons are seen. No abnormal enhancement is identified. IMPRESSION: Changes of chronic microvascular ischemia. No acute intracranial process is detected. Dictated by: Dictated on workstation # [id number]
--- NOTE | 2021-02-16 19:57 | Cardiology Progress Note ---
Progress Note-Cardiology Events since last exam Date Seen by Provider: Feb 16, 2021 Time Seen by Provider: 19:54 Events since last exam We are seeing her due to hypertension. When I saw her, she was complaining of pain in the back of her neck. She denied chest pain, dyspnea, palpitations, syncope, or ankle edema. Towards the end of my conversation, she fell asleep while we were talking. Certain portions of this document may have been dictated utilizing voice recognition technology. Inherent to this technology, typographical and grammatical errors may exist. As much as I am diligent to identify and correct these mistakes, some errors may remain in the document. Vitals Last set of Vitals Signs Vital Signs 02/14/21 02/15/21 02/16/21 01:44 20:00 16:32 Temp 36.2 Pulse 82 Resp 18 B/P (MAP) 186/76 (112) Pulse Ox 95 O2 Delivery Room Air O2 Flow Rate 2.00 FiO2 21 Labs Labs Laboratory Tests 02/16/21 05:00 Exam Vital Signs Vital Signs Date Time Temp Pulse Resp B/P (MAP) Pulse Ox O2 Delivery O2 Flow Rate FiO2 02/16/21 16:32 36.2 82 18 186/76 (112) 95 Room Air 02/15/21 20:00 2.00 02/14/21 01:44 21 Physical Exam General: Alert. No acute distress. She is obese. Eye: No xanthelasma. HENT: Normocephalic. Neck: Jugular venous pressure does not appear elevated. Respiratory: Lungs are clear to auscultation. Respirations are non-labored. Breath sounds are equal. Symmetrical chest wall expansion. Cardiovascular: Normal rate. Regular rhythm. No murmur. No gallop. No edema. Gastrointestinal: Soft. Normal bowel sounds. Skin: Warm. Dry. Neurologic: Alert and oriented to person, place, time. Cranial nerves 3-11 grossly intact. Psychiatric: Cooperative. Appropriate mood & affect. Labs Laboratory Tests Test 02/16/21 05:00 Range/Units Sodium Level 135 135-145 MMOL/L Potassium Level 5.1 H 3.6-5.0 MMOL/L Chloride Level 105 98-107 MMOL/L Carbon Dioxide Level 19 L 21-32 MMOL/L Anion Gap 11 5-14 MMOL/L Blood Urea Nitrogen 7 7-18 MG/DL Creatinine 0.61 0.60-1.30 MG/DL Estimat Glomerular Filtration Rate 94 BUN/Creatinine Ratio 11 Glucose Level 119 H 70-105 MG/DL Calcium Level 9.2 8.5-10.1 MG/DL Magnesium Level 1.9 1.6-2.4 MG/DL Diagnosis/Problems Diagnosis/Problems (1) Hypertensive urgency Assessment & Plan: Blood pressures have improved. She has no previous history of hypertension. She would likely need to be discharged on antihypertensive medication. (2) Mixed hyperlipidemia Assessment & Plan: She has been taking gemfibrozil on at home which has been resumed. I added a lipid panel to blood work from this morning. (3) Aortic regurgitation Assessment & Plan: Her echocardiogram showed mild aortic and mitral regurgitation. Neither of these should be causing symptoms but we may want to consider a follow-up echocardiogram in 2-3 years. (4) Obesity Assessment & Plan: She needs to work on weight loss. HAILY ABURTO JR, MD Feb 16, 2021 19:57
[2021-02-16] MEDS: MELATONIN 10 MG TABLET PO SCH (20:04)
[2021-02-16] MEDS: cefTRIAXone 1 GM IV (PRE-MIX) 50 ML IV SCH (20:04)
[2021-02-16 20:11] LABS: TRIGLYCERIDES 133 MG/DL (<150)
[2021-02-16 20:12] LABS: VLDL CHOLESTEROL 27 MG/DL (5-40)
[2021-02-16 20:16] LABS: CHOLESTEROL 204 MG/DL (< 200)
[2021-02-16 20:17] LABS: HDL CHOLESTEROL 52 MG/DL (40-60)
[2021-02-16] MEDS: AZITHROMYCIN 500 MG/NS 250 ML IVPB IV SCH ×2 (20:59)
[2021-02-17] VITALS (7 sets, daily range): BP systolic 136–177; BP diastolic 60–77
[2021-02-17] MEDS: hydrALAZINE (APRESOLINE) 25 MG TAB PO PRN (05:12)
[2021-02-17] MEDS: ACETAMINOPHEN 500 MG TAB (TYLENOL) PO PRN (05:13)
--- NOTE | 2021-02-17 09:19 | Discharge Summary ---
Diagnosis/Chief Complaint Date of Admission Feb 14, 2021 at 08:26 Date of Discharge Reason Hospital Visit PT IS AN 80 Y/O FEMALE WHO IS KNOWN TO ME FROM CLINIC. SHE HAS HISTORY OF COMPRESSION FRACTURE OF SPINE WITH KYPHOPLASTY SHE WAS BROUGHT TO THE ER DUE TO CONFUSION AND WEAKNESS - FOUND TO HAVE SEVERE HYPERTENSION AND HYPOKALEMIA AND ADMITTED TO THE HOSPITAL FOR FURTHER WORK UP AND MANAGEMENT. Discharge Summary Discharge Physical Examination Allergies: Coded Allergies: NKANo Known Allergies (Verified Allergy, Unknown, 08/06/06) Vitals & I&Os Vital Signs Date Time Temp Pulse Resp B/P (MAP) Pulse Ox O2 Delivery O2 Flow Rate FiO2 02/17/21 07:53 37.0 85 18 141/67 (91) 93 Room Air 02/15/21 20:00 2.00 02/14/21 01:44 21 Discharge Instructions to patient/family Please see electronic discharge instructions given to patient. Discharge Medications Reviewed and agree with Discharge Medication list on patient's Discharge Instruction sheet JOSE MARTIN CAMEJO MD Feb 17, 2021 09:19
[2021-02-17] MEDS ORDERED: CEFD300C3 PO (09:21)
[2021-02-17] MEDS ORDERED: AMLO-250 PO (09:21)
[2021-02-17] MEDS ORDERED: METO50TA7 PO (09:21)
[2021-02-17] MEDS ORDERED: LACT1CAP87 PO (09:21)
[2021-02-17] MEDS ORDERED: AZIT250T12 PO (09:21)
--- NOTE | 2021-02-17 09:25 | D/C HH Face to Face Order ---
D/C Face to Face Orders Reconcile Patient Problems Problems Reviewed?: Yes Instructions for Patient [facility] Patient Instructions/FollowUp: 1 wk [facility] 3 weeks [facility] clinic Physician to follow Patient: darius Discharge Diet for Home: Regular Diet Patient Problems: SEVERE HYPOKALEMIA - resolved on dc HYPERTENSIVE URGENCY - improved on dc EARLY PNEUMONIA - improved on dc BACK PAIN RECENT COMPRESSION FRACTURE WEAKNESS CONFUSION Goals for Patient: increased strength, decreased pain in back, improved mentation Patient Data-Allergies,Ht & Wt Patient Allergies: Coded Allergies: NKANo Known Allergies (Verified Allergy, Unknown, 08/06/06) Home Health Need/Face to Face Date of Face to Face: Feb 17, 2021 Clinical Findings: Muscle weakness I have seen Pt [id number]: Yes Discharged To: Home Diagnosis/Conditions: SEVERE HYPOKALEMIA - resolved on dc HYPERTENSIVE URGENCY - improved on dc EARLY PNEUMONIA - improved on dc BACK PAIN RECENT COMPRESSION FRACTURE WEAKNESS CONFUSION Patient is Homebound due to: Bobby fall risk due to instabilty, Muscle weakness Homebound Status Due to the above stated illness, injury or surgical procedure (medical condition or diagnosis) and associated clinical findings, the patient is home bound because of his/her inability to leave home except with aid of a supportive device and/or person AND leaving the home requires a considerable and taxing effort or is medically contraindicated. Pt req the following assistanc: [facility] Nursing Orders Home Health Services Order: Nursing Services, Physical Therapy-Evaluate & Treat cbc and cmp on 02/21/2021 please instruct pt and son on how to monitor bp and heart rate three times daily with results to the [facility] Infusion Therapy Line Start Date: Feb 15, 2021 Therapy Orders Therapy Specific Orders: Eval assistive deivces, Teach enviro modif ications/safety, Increase strength/endurance Certify Stmt I certify that this patient is under my care and that I, a nurse practitioner or a physician; a information services assistant working with me, had a face to face encounter that - meets the physician face to face encounter requirements with this patient as dated. Medication List: Active Scripts Active Acidophilus Lactobacilli (Lactobacillus Acidophilus) 1 Each Capsule 1 Each PO TID Cefdinir 300 Mg Capsule 300 Mg PO BID Amlodipine Besylate 5 Mg Tablet 10 Mg PO DAILY Metoprolol Succinate 50 Mg Tab.er.24h 50 Mg PO DAILY Azithromycin 250 Mg Tablet 250 Mg PO HS Reported Vitamin D3 (Cholecalciferol (Vitamin D3)) 50 Mcg Capsule 100 Mcg PO DAILY TAKES 2 (50MCG) CAPSULE Zyrtec (Cetirizine HCl) 10 Mg Tablet 10 Mg PO DAILY Fish Oil [place]-3 Softgel ([place]-3S/Dha/Epa/Fish Oil) 1 Each Capsule.dr 2 Each PO DAILY Melatonin 5 Mg Tablet 5 Mg PO HS Tums Smoothies (Calcium Carbonate) 300 Mg Tab.chew 300 Mg PO QID Multi-Vitamin Daily (Multivitamin) 1 Each Tablet 1 Each PO DAILY Gemfibrozil 600 Mg Tablet 600 Mg PO BID Omeprazole 20 Mg Capsule.dr 20 Mg PO DAILY Calcitonin-[place] (Calcitonin,[place],Synthetic) 3.7 Ml [place].pump 1 [place] NS DAILY ALTERNATE NOSTRILS DAILY [Glucosamine Chondroi] Tab My orders: Orders - JOSE MARTIN CAMEJO MD [facility] Inj (Radiology) ([facility] In (02/16/21 10:30) Patient Visit (02/16/21 ) Exercise Therap, Ea 15 Min (02/16/21 ) Gait Training, Ea 15 Min (02/16/21 ) Azithromycin Tablet (Zithromax Tablet) (02/17/21 21:00) Attending Discharge Inpt/Inobs (02/17/21 09:19) Home [facility] Dischage (02/17/21 09:19) JOSE MARTIN CAMEJO MD Feb 17, 2021 09:25
[2021-02-17] MEDS: CALCITONIN NASAL 200 INTLU/AC (FORTICAL) 3.7 ML BTL NS SCH (09:36)
[2021-02-17] MEDS: meTOproloL SUCCINATE 50 MG (TOPROL XL) TAB PO SCH (09:36)
[2021-02-17] MEDS: PANTOPRAZOLE 20 MG TABLET (PROTONIX) PO SCH (09:36)
[2021-02-17] MEDS: amLODIPine 5 MG (NORVASC) TAB PO SCH (09:36)
[2021-02-17] MEDS: LORATADINE (CLARITIN) 10 MG TAB PO SCH (09:37)
[2021-02-17] MEDS: GEMFIBROZIL 600 MG (LOPID) TAB PO SCH (09:37)
[2021-02-17] MEDS ORDERED: AZITHROMYCIN 250 MG TAB (ZITHROMAX) PO SCH (21:00)
== END 2021-02-17 17:55 | disposition home health service (06) | DRG 640 ==
LOC: EDUNIT# 20:31 → ER 20:32 → 4TH 22:44 → OBSVTOIN 02-14 08:26 → 4TH 02-15 15:31
PROVIDERS: ADMIT Family Medicine; ATTEND Family Medicine
DX: E87.6 Hypokalemia (principal); J18.9 Pneumonia, unspecified organism; I16.0 Hypertensive urgency; M54.9 Dorsalgia, unspecified; R53.1 Weakness; R41.0 Disorientation, unspecified; E78.2 Mixed hyperlipidemia; I35.1 Nonrheumatic aortic (valve) insufficiency; E66.9 Obesity, unspecified; G89.29 Other chronic pain; Z20.822 Contact with and (suspected) exposure to COVID-19
CPT/HCPCS: 36415; 51701; 70450; 70496; 70498; 70553; 71045; 71046; 71260; 76770; 80048; 80053; 80061; 81000; 82140; 82550; 82553; 83605; 83735; 83874; 83880; 84443; 84484; 85025; 85027; 85610; 85652; 85730; 86141; 87040; 87088; 87636; 93005; 93041; 93306; 93975; 94760; G0378